=== PATIENT | male | born 1940 | race Caucasian/White ===

== ENCOUNTER 2020-07-10 15:59 | Inpatient (IN) ==
[2020-07-10] MEDS ORDERED: 0.9 % SODIUM CHLORIDE 500 ML IV ONE (17:08)
--- NOTE | 2020-07-10 17:17 | XRay Report ---
INDICATION: pre op TECHNIQUE: AP supine chest x-ray chest x-ray COMPARISON: Previous examination dated 02/25/2020 FINDINGS:Left transvenous pacemaker lead is unchanged Lungs:Lungs are negative. No focal pulmonary parenchymal infiltrate or mass Heart, vascular:There is significant cardiomegaly. This appears slightly increased since 02/25/2020. Pulmonary vascularity is normal. No pulmonary edema or pulmonary congestion. Pericardial effusion is not excluded based upon plain radiograph Mediastinum, steffany:No mediastinal widening. No hilar mass Pleura:No pleural fluid. No pleural-based mass or calcification Skeletal:Negative. IMPRESSION: 1. Marked cardiomegaly. This is slightly increased since 02/25/2020 2. Pericardial effusion is not excluded. 3. No focal pulmonary parenchymal infiltrate. No evidence for congestive heart failure Interpreted and Authenticated by: Ze Parsons 07/10/20
--- NOTE | 2020-07-10 17:25 | XRay Report ---
INDICATION: Fell. c/o L hip pain. Unable to ambulate. TECHNIQUE: AP pelvis. AP and lateral left hip COMPARISON: None. FINDINGS: Basicervical left hip fracture with varus angulation deformity. No pelvic fracture. No lytic lesion. Right hip is negative. There is extensive vascular calcification consistent with atherosclerotic disease IMPRESSION: Basicervical left hip fracture with varus angulation deformity Interpreted and Authenticated by: Ze Parsons 07/10/20
[2020-07-10] MEDS ORDERED: morphine 2 MG/ML VIAL IV ONE (17:45)
--- NOTE | 2020-07-10 18:08 | Emergency Department Note ---
Lower Extremity Injury HPI General Chief Complaint: Extremity Injury, Lower Stated Complaint: Hip pain Time Seen by Provider: 07/10/20 16:44 Source: patient Mode of arrival: ambulatory Limitations: no limitations History of Present Illness HPI Narrative: Narrative: 80-year-old male patient presents emergency department chief complaint of worsening left hip pain and inability to walk. Patient mentions he was playing with his dog outside when he was inadvertently pushed backwards landing "hard on my knee". This caused sudden sharp pain into his left hip. He was unable to put weight on the affected leg since that time. Upon arrival, patient admits to pain localized to the hip joint. He mentions the pain is dull when laying still. However with any movement the pain shoots to 10++/10. He denies any radiculopathy in the affected left lower extremity. He denies any preceding shortness of breath, chest pain, or dizziness before falling. He denies hitting his head or loss of consciousness. ROS: Denies systemic illness, fever, sweats, chills. Denies headaches, tinnitus, or vision changes. Denies runny nose, sinus congestion, or cough. Denies shortness of breath. Denies retrosternal chest pain or palpitations. Denies abdominal pain, nausea, vomiting, or diarrhea. Denies dysuria, hematuria, urinary frequency, or urinary urgency. Denies generalized or focal weakness. Related Data Home Medications Medication Instructions Recorded Confirmed apixaban [Eliquis] mg PO 07/10/20 07/10/20 latanoprost 1 drp OPHTHALMIC (EYE) QHS 07/10/20 07/10/20 levothyroxine 50 mcg PO QDAY 07/10/20 07/10/20 potassium chloride meq PO 07/10/20 07/10/20 tamsulosin 1 mg PO QDAY 07/10/20 07/10/20 torsemide 40 mg PO BID 07/10/20 07/10/20 Allergies Allergy/AdvReac Type Severity Reaction Status Date / Time No Known Drug Allergies Allergy Verified 01/24/18 12:52 Review of Systems ROS ROS Narrative: Narrative: All systems ED: reviewed and negative except as stated. [facility] Narrative Patient History Narrative: Narrative: Medical/Surgical/Family History All Active Problems (Updated 07/10/20 @ 18:33 by Mat Corrigan PA-C) Closed fracture of left hip (Acute) Atrial fibrillation (Acute) Medical History Atrial fibrillation (Acute) Surgical History History of permanent cardiac pacemaker placement (Acute) Social History Smoking Status: Former smoker Exam Narrative Narrative: Narrative: General Limitations: no limitations General appearance: Present other (Well-developed, well-nourished, 80-year-old male patient laying supine on the emergency room gurney in mild discomfort. No acute respiratory distress. He is afebrile with normal vital signs.) Head Head: Present atraumatic and normocephalic Eye Eye: Present normal appearance, PERRL and EOMI; Absent scleral icterus and conjunctival injection ENT ENT: Present normal oropharynx and mucous membranes moist Neck Neck: Present trachea midline; Absent lymphadenopathy and thyromegaly Chest Chest: Present normal inspection (Pacemaker noted to the left upper chest.) and symmetric chest wall rise Respiratory Respiratory: Present normal lung sounds bilaterally; Absent respiratory distress, wheezes, stridor, accessory muscle use and prolonged expiratory phase Cardiovascular Cardiovascular: Present regular rate and normal rhythm; Absent systolic murmur and diastolic murmur Adbominal Abdominal: Present soft; Absent distention, tenderness, guarding, rebound, rigidity, organomegaly and mass Expanded Lower Extremity Hip/Pelvis: Present normal inspection, tenderness, deformity, erythema, internal rotation, shortening and pelvis stable; Absent full ROM, swelling, ecchymosis, crepitus, dislocation and external rotation Upper leg: Present normal inspection and full ROM; Absent tenderness Knee: Present normal inspection and full ROM; Absent tenderness Lower leg: Present normal inspection and full ROM; Absent tenderness Ankle: Present normal inspection and full ROM; Absent tenderness Foot/toe: Present normal inspection and full ROM; Absent tenderness Neurovascular/Tendon: Present normal capillary refill (2 seconds.) and motor deficit; Absent pulse deficit and sensory deficit Gait: unable to bear weight Neurological Neurological: Present alert and oriented X3 Psychiatric Psychiatric: Present normal affect and normal mood Skin Skin: Present warm (WNL), dry and normal color Course Course Course Narrative: Upon arrival patient was sent to radiology for a left hip x- ray series. Unfortunately, patient fractured his left femoral neck. Once this was noted I reached out to our on-call orthopedic surgeon (Dr. Matthews) and discussed the case briefly with him. At this time Dr. Matthews said he would come down and evaluate the patient. Prior to this preoperative clearance labs, EKG, chest x-ray were ordered. Reevaluation(s) Reevaluation #1: Dr. Matthews arrived at the patient's bedside did a formal evaluation. At this time he wants the patient admitted under the hospitalist service in order to have the left hip surgically corrected. A review the patient's diagnostics show the following: CBC WBC 16.9, RBC 3.13, hemoglobin 10.1, hematocrit 30.8, platelets 335. CMP CO2 31, creatinine 1.3, all others normal limits. Covid test still pending. Left hip x-rays read by the radiologist as basicervical left hip fracture with varus angulation deformity. Portable chest x-ray showing marked cardiomegaly but no evidence of CHF. No pericardial effusion noted. After reviewing the data I discussed these findings with our hospitalist (Dr. Retana) andre case with him. At this time Dr. Retana consented to have the patient admitted to the our facility. He did request ho lding orders be placed by me and that he would come in and evaluate the patient later this evening. Knowing this inpatient admissions orders were completed as requested. All further treatment decisions, modalities, and ultimate patient disposition be carried out by Dr. Retana in conjunction with the orthopedic surgeon (Dr. Matthews). Vital Signs Vital signs: Vital Signs Temperature 97.2 F 07/10/20 16:00 Pulse Rate 60 07/10/20 16:00 Respiratory Rate 14 07/10/20 16:00 Blood Pressure 154/78 07/10/20 16:00 Pulse Oximetry (%) 97 07/10/20 16:00 Temperature 97.2 F 07/10/20 21:08 Pulse Rate 69 07/10/20 21:08 Respiratory Rate 16 07/10/20 21:08 Blood Pressure 117/81 07/10/20 21:08 Pulse Oximetry (%) 96 07/10/20 21:08 [facility] MDM Narrative Medical decision making narrative: Narrative: Lab Data Lab results reviewed: Yes I reviewed the patient's lab results. Result diagrams: 07/10/20 17:25 07/10/20 17:25 Labs: Lab Results 07/10/20 07/10/20 07/10/20 Range/Units 17:00 17:25 17:25 WBC 16.9 H (4.5-11.0) K/mcL RBC 3.13 L (4.50-5.90) M/mcL Hgb 10.1 L (13.5-16.5) g/dL Hct 30.8 L (41.0-55.0) % MCV 98.4 (80.0-100.0) fL MCH 32.3 (26.0-34.0) pg MCHC 32.8 (31.0-36.0) g/dL RDW 14.2 (11.5-14.5) % Plt Count 335 (140-440) K/mcL MPV 10.3 (7.4-10.4) fL Neut % (Auto) 84.0 H (38.0-78.0) % Lymph % (Auto) 8.8 L (15.0-49.0) % [place] % (Auto) 5.9 (1.0-12.0) % Eos % (Auto) 0.9 (0.0-7.0) % Baso % (Auto) 0.4 (0.0-2.0) % Lymph # (Auto) 1.48 L (1.50-4.80) K/mcL [place] # (Auto) 0.99 H (0.10-0.90) K/mcL Eos # (Auto) 0.16 (0.00-0.70) K/mcL Baso # (Auto) 0.07 (0.00-0.20) K/mcL Absolute Neutrophils 14.19 H (1.80-8.00) K/mcL Sodium 138 (133-145) mmol/L Potassium 3.8 (3.3-5.1) mmol/L Chloride 98 (96-108) mmol/L Carbon Dioxide 31 H (22-30) mmol/L Anion Gap 9.0 (8.0-16.0) BUN 20 (8-23) mg/dL Creatinine 1.3 H (0.7-1.2) mg/dL GFR Calculation 52 Glucose 103 (70-105) mg/dL Calcium 9.0 (8.6-10.4) mg/dL Total Bilirubin 0.5 (0.1-1.0) mg/dL AST 21 (<40) U/L ALT 18 (<40) U/L Alkaline Phosphatase 63 (39-117) U/L Total Protein 6.8 (5.9-8.4) gm/dL Albumin 3.2 (3.2-5.2) gm/dL Globulin 3.6 (2.2-3.7) gm/dL Albumin/Globulin Ratio 0.9 L (1.0-2.3) Urine Color Urine Appearance (Clear) Urine pH (5.0-9.0) Ur Specific [place] (1.000-1.035) Urine Protein (Negative) mg/dL Urine Glucose (UA) (Negative) mg/dL Urine Ketones (Negative) mg/dL Urine Occult Blood (Negative) mg/dL Urine Nitrate (Negative) Urine Bilirubin (Negative) mg/dL Urine Urobilinogen mg/dL Ur Leukocyte Esterase (Negative) /ug Urine RBC (0-1) /hpf Urine WBC (0-4) /hpf Ur Squamous Epith Cells (0-4) /hpf Urine Bacteria (0) /hpf Hyaline Casts (0-2) /lph Ur Culture Indicated? SARS-CoV-2 (PCR) Negative (Negative) 07/10/20 07/10/20 Range/Units 17:34 20:44 WBC (4.5-11.0) K/mcL RBC (4.50-5.90) M/mcL Hgb (13.5-16.5) g/dL Hct (41.0-55.0) % MCV (80.0-100.0) fL MCH (26.0-34.0) pg MCHC (31.0-36.0) g/dL RDW (11.5-14.5) % Plt Count (140-440) K/mcL MPV (7.4-10.4) fL Neut % (Auto) (38.0-78.0) % Lymph % (Auto) (15.0-49.0) % [place] % (Auto) (1.0-12.0) % Eos % (Auto) (0.0-7.0) % Baso % (Auto) (0.0-2.0) % Lymph # (Auto) (1.50-4.80) K/mcL [place] # (Auto) (0.10-0.90) K/mcL Eos # (Auto) (0.00-0.70) K/mcL Baso # (Auto) (0.00-0.20) K/mcL Absolute Neutrophils (1.80-8.00) K/mcL Sodium (133-145) mmol/L Potassium (3.3-5.1) mmol/L Chloride (96-108) mmol/L Carbon Dioxide (22-30) mmol/L Anion Gap (8.0-16.0) BUN (8-23) mg/dL Creatinine (0.7-1.2) mg/dL GFR Calculation Glucose (70-105) mg/dL Calcium (8.6-10.4) mg/dL Total Bilirubin (0.1-1.0) mg/dL AST (<40) U/L ALT (<40) U/L Alkaline Phosphatase (39-117) U/L Total Protein (5.9-8.4) gm/dL Albumin (3.2-5.2) gm/dL Globulin (2.2-3.7) gm/dL Albumin/Globulin Ratio (1.0-2.3) Urine Color Straw Urine Appearance Clear (Clear) Urine pH 6.0 (5.0-9.0) Ur Specific [place] 1.009 (1.000-1.035) Urine Protein Negative (Negative) mg/dL Urine Glucose (UA) Negative (Negative) mg/dL Urine Ketones Negative (Negative) mg/dL Urine Occult Blood Negative (Negative) mg/dL Urine Nitrate Negative (Negative) Urine Bilirubin Negative (Negative) mg/dL Urine Urobilinogen Negative mg/dL Ur Leukocyte Esterase Negative (Negative) /ug Urine RBC 1 (0-1) /hpf Urine WBC < 1 (0-4) /hpf Ur Squamous Epith Cells 0 (0-4) /hpf Urine Bacteria None (0) /hpf Hyaline Casts 3 H (0-2) /lph Ur Culture Indicated? No SARS-CoV-2 (PCR) TNP (Negative) Radiology Data Radiology results reviewed: Yes I reviewed the patient's radiology results. Radiology results narrative: Ordering Physician: Mat Corrigan PA-C Date of Service: 07/10/20 Procedure(s): XR hip LT comp 2VW Accession Number(s): [id number] INDICATION: Fell. c/o L hip pain. Unable to ambulate. TECHNIQUE: AP pelvis. AP and lateral left hip COMPARISON: None. FINDINGS: Basicervical left hip fracture with varus angulation deformity. No pelvic fracture. No lytic lesion. Right hip is negative. There is extensive vascular calcification consistent with atherosclerotic disease IMPRESSION: Basicervical left hip fracture with varus angulation deformity Ordering Physician: Ki Padilla M.D. Date of Service: 07/10/20 Procedure(s): XR chest 1V portable Accession Number(s): [id number] INDICATION: pre op TECHNIQUE: AP supine chest x-ray chest x-ray COMPARISON: Previous examination dated 02/25/2020 FINDINGS:Left transvenous pacemaker lead is unchanged Lungs:Lungs are negative. No focal pulmonary parenchymal infiltrate or mass Heart, vascular:There is significant cardiomegaly. This appears slightly increased since 02/25/2020. Pulmonary vascularity is normal. No pulmonary edema or pulmonary congestion. Pericardial effusion is not excluded based upon plain radiograph Mediastinum, steffany:No mediastinal widening. No hilar mass Pleura:No pleural fluid. No pleural-based mass or calcification Skeletal:Negative. IMPRESSION: 1. Marked cardiomegaly. This is slightly increased since 02/25/2020 2. Pericardial effusion is not excluded. 3. No focal pulmonary parenchymal infiltrate. No evidence for congestive heart failure Interpreted and Authenticated by: Ze Parsons 07/10/20 Discharge Plan Patient/Caregiver Discharge Instructions Pt seen by WAX BLEACHER/PA only: Yes Clinical Impression: Closed fracture of left hip Qualifiers: Encounter type: initial encounter Qualified Code(s): S72.002A - Fracture of unspecified part of neck of left femur, initial encounter for closed fracture Atrial fibrillation Qualifiers: Atrial fibrillation type: unspecified Qualified Code(s): I48.91 - Unspecified atrial fibrillation Patient Disposition: Xfer As Inpt ([facility]) Condition: Fair Discharge Date/Time: 07/10/20 21:03
[2020-07-10 18:10] LABS: Basophils # (Auto) 0.07 K/mcL (0.00-0.20); Basophils % (Auto) 0.4 % (0.0-2.0); Eosinophils # (Auto) 0.16 K/mcL (0.00-0.70); Eosinophils % (Auto) 0.9 % (0.0-7.0); Hematocrit 30.8 % (41.0-55.0); Hemoglobin 10.1 g/dL (13.5-16.5); Lymphocytes # (Auto) 1.48 K/mcL (1.50-4.80); Lymphocytes % (Auto) 8.8 % (15.0-49.0); Mean Cell Volume 98.4 fL (80.0-100.0); Mean Corpuscular HGB Conc 32.8 g/dL (31.0-36.0); Mean Platelet Volume 10.3 fL (7.4-10.4); Monocytes # (Auto) 0.99 K/mcL (0.10-0.90); Monocytes % (Auto) 5.9 % (1.0-12.0); Platelet Count 335 K/mcL (140-440); RBC 3.13 M/mcL (4.50-5.90); Red Cell Distribution Width 14.2 % (11.5-14.5); WBC 16.9 K/mcL (4.5-11.0)
[2020-07-10 18:27] LABS: ALT/SGPT 18 U/L (<40); AST/SGOT 21 U/L (<40); Albumin 3.2 gm/dL (3.2-5.2); Albumin/Globulin Ratio 0.9 (1.0-2.3); Alkaline Phosphatase 63 U/L (39-117); Bilirubin,Total 0.5 mg/dL (0.1-1.0); Blood Urea Nitrogen 20 mg/dL (8-23); Carbon Dioxide 31 mmol/L (22-30); Chloride 98 mmol/L (96-108); Globulin 3.6 gm/dL (2.2-3.7); Glomerular Filtration Rate 52; Glucose 103 mg/dL (70-105)
[2020-07-10] MEDS ORDERED: ONDANSETRON 4 MG/2 ML VIAL IV PRN ×2 (18:33→19:08)
[2020-07-10] MEDS ORDERED: 0.9 % SODIUM CHLORIDE 1,000 ML IV SCH (18:45)
[2020-07-10] MEDS ORDERED: POLYETHYLENE GLYCOL 3350 17 GM PACKET PO PRN (19:08)
[2020-07-10] MEDS ORDERED: HYDROmorphone 0.5 MG/0.5 ML SYRINGE IV PRN (19:08)
[2020-07-10] MEDS ORDERED: MAGNESIUM SULFATE 2 GM/50 ML BAG IV PRN (19:08)
[2020-07-10] MEDS ORDERED: MELATONIN 3 MG TABLET PO PRN (19:08)
[2020-07-10] MEDS ORDERED: ONDANSETRON 4 MG ODT TABLET SL PRN (19:08)
[2020-07-10] MEDS ORDERED: METOPROLOL TARTRATE 5 MG/5 ML VIAL IV PRN (19:08)
[2020-07-10] MEDS ORDERED: ACETAMINOPHEN 650 MG/65 ML BOTTLE IV PRN (19:08)
[2020-07-10] MEDS ORDERED: ACETAMINOPHEN 325 MG TABLET PO PRN (19:08)
[2020-07-10] MEDS ORDERED: POTASSIUM CHLORIDE 20 MEQ PACKET PO PRN (19:08)
[2020-07-10] MEDS ORDERED: BISACODYL 10 MG SUPP.RECT PR PRN (19:08)
[2020-07-10] MEDS ORDERED: hydrALAZINE 20 MG/ML VIAL IV PRN (19:08)
--- NOTE | 2020-07-10 19:11 | Internal Med History&Physical ---
HPI History of Present Illness Patient information: Note initiated : 07/10/20 at 7:11 pm Service Date, if different from initiated Date: [] Patient: Messi Hermosillo a 80 y/o M admitted on for Hip pain. Chief Complaint: Fall/left hip pain History of present illness: Mr. Hermosillo is a 80 year old M with a history of atrial fibrillation/pacemaker follows up with Dr. Tomas cardiology, anticoagulation for Superflex, hypothyroidism and glaucoma who presents to the ER following a fall while he was playing with his dog. Patient apparently lost balance and landed on the floor resulting in pain and inability to walk. Initial work-up was consistent with left hip fracture. Hospitalist service was consulted after orthopedic recommended admission for operative intervention. Patient's last dose of Eliquis was 6 AM 07/10, He denies respiratory events, loss of consciousness, fever, chills, lightheadedness or dizziness. He has been fairly healthy otherwise Review of systems 10 point review system was performed and is negative except for ones cussed above PFSH PFSH All Active Problems (Updated 07/10/20 @ 18:33 by Mat Corrigan PA-C) Closed fracture of left hip (Acute) Atrial fibrillation (Acute) Medical History Atrial fibrillation (Acute) Surgical History History of permanent cardiac pacemaker placement (Acute) Social History smoking status: Former smoker MEDS/ALLERGIES Home Medications and Allergies Home Medications Medication Instructions Recorded Confirmed Type apixaban [Eliquis] mg PO 07/10/20 07/10/20 History latanoprost 1 drp OPHTHALMIC (EYE) QHS 07/10/20 07/10/20 History levothyroxine 50 mcg PO QDAY 07/10/20 07/10/20 History potassium chloride meq PO 07/10/20 07/10/20 History tamsulosin 1 mg PO QDAY 07/10/20 07/10/20 History torsemide 40 mg PO BID 07/10/20 07/10/20 History Allergies Allergy/AdvReac Type Severity Reaction Status Date / Time No Known Drug Allergies Allergy Verified 01/24/18 12:52 EXAM Constitutional Vitals: Temp Pulse Resp BP Pulse Ox 97.2 F 69 16 156/77 96 07/10/20 16:00 07/10/20 17:40 07/10/20 17:40 07/10/20 17:40 07/10/20 17:40 Alert oriented Head normocephalic Oral cavity moist No ear nose discharge Eye movement symmetrical Neck supple no lymphadenopathy S1-S2 occasionally irregular Nonlabored breathing Nondistended nontender abdomen Left lower extremity shortened and externally rotated, no cyanosis clubbing or joint swelling Skin no suspicious lesion Psych no hallucination Neuro normal higher function DATA Data Completed and Pending Labs: Labs from last 24 hours 07/10/20 07/10/20 07/10/20 17:34 17:25 17:25 WBC 16.9 H RBC 3.13 L Hgb 10.1 L Hct 30.8 L MCV 98.4 MCH 32.3 MCHC 32.8 RDW 14.2 Plt Count 335 MPV 10.3 Neut % (Auto) 84.0 H Lymph % (Auto) 8.8 L [place] % (Auto) 5.9 Eos % (Auto) 0.9 Baso % (Auto) 0.4 Lymph # (Auto) 1.48 L [place] # (Auto) 0.99 H Eos # (Auto) 0.16 Baso # (Auto) 0.07 Absolute Neutrophils 14.19 H Sodium 138 Potassium 3.8 Chloride 98 Carbon Dioxide 31 H Anion Gap 9.0 BUN 20 Creatinine 1.3 H GFR Calculation 52 Glucose 103 Calcium 9.0 Total Bilirubin 0.5 AST 21 ALT 18 Alkaline Phosphatase 63 Total Protein 6.8 Albumin 3.2 Globulin 3.6 Albumin/Globulin Ratio 0.9 L SARS-CoV-2 (PCR) TNP 07/10/20 17:00 WBC RBC Hgb Hct MCV MCH MCHC RDW Plt Count MPV Neut % (Auto) Lymph % (Auto) [place] % (Auto) Eos % (Auto) Baso % (Auto) Lymph # (Auto) [place] # (Auto) Eos # (Auto) Baso # (Auto) Absolute Neutrophils Sodium Potassium Chloride Carbon Dioxide Anion Gap BUN Creatinine GFR Calculation Glucose Calcium Total Bilirubin AST ALT Alkaline Phosphatase Total Protein Albumin Globulin Albumin/Globulin Ratio SARS-CoV-2 (PCR) Pending A/P Narrative A/P Narrative: * Left hip fracture-operative intervention per orthopedics. Keep n.p.o. until surgery. Pain management * Preoperative risk evaluation-based on [employer] [place] [employer] to stratification patient would fall under intermittent a high risk category based on surgery specific risk and cardiac history. However there are no modifiable risk factor except for Eliquis which will be held to minimize risk of bleeding. Surgery and anesthesia specific risk will be addressed by individual care provider. * Atrial fibrillation on anticoagulation currently being held until surgery * Glaucoma continue latanoprost * Hypothyroidism contraction * BPH continue on Zosyn * Full code Plan * Inpatient admission * Orthopedic consult * Hold Eliquis * Pre-existing medical condition management home meds * N.p.o. after midnight * Pain management * PT OT * discharge planning Time Spent With Patient Time: Total time spent is greater than 50% in coordination of care (as documented) at patient's floor/unit and/or counseling patient:
[2020-07-10] MEDS: morphine 4 MG/ML VIAL IV PRN (21:53)
[2020-07-10 21:59] LABS: Appearance,Urine CLEAR (Clear); Bilirubin,Urine Negative (Negative); Color,Urine STRAW; Culture Indicated,Urine No; Glucose,Urine (UA) Negative (Negative); Ketones,Urine Negative (Negative); Leukocyte Esterase,Urine Negative /ug (Negative); Nitrate,Urine Negative (Negative); Protein,Urine Negative (Negative); Specific Gravity,Urine 1.009 (1.000-1.035); Urine Blood Negative (Negative); Urine Hyaline Cast 3 /lph (0-2); Urine RBC 1 /hpf (0-1); Urine Squamous Epithelial Cell 0 /hpf (0-4); Urine WBC < 1 /hpf (0-4); Urobilinogen,Urine Negative
[2020-07-10] MEDS ORDERED: 0.9 % SODIUM CHLORIDE 10 ML SYRINGE IV SCH (22:00)
[2020-07-10] MEDS: DOCUSATE SODIUM 100 MG CAPSULE PO SCH (22:47)
[2020-07-10] MEDS: SENNOSIDES/DOCUSATE SODIUM 1 TAB TABLET PO SCH (22:47)
[2020-07-10] MEDS: 0.9 % SODIUM CHLORIDE 1,000 ML IV SCH (22:52)
[2020-07-10] MEDS: 0.9 % SODIUM CHLORIDE 10 ML SYRINGE IV SCH (22:52)
[2020-07-11] MEDS: 0.9 % SODIUM CHLORIDE 10 ML SYRINGE IV SCH ×4 (06:28→22:13)
[2020-07-11] MEDS: morphine 4 MG/ML VIAL IV PRN (07:48)
[2020-07-11] MEDS: DOCUSATE SODIUM 100 MG CAPSULE PO SCH ×2 (07:50→22:11)
[2020-07-11] MEDS: MULTIVIT,THER IRON,CA,FA & MIN 1 TABLET PO SCH (07:50)
[2020-07-11 08:16] LABS: ALT/SGPT 15 U/L (<40); AST/SGOT 15 U/L (<40); Albumin 2.9 gm/dL (3.2-5.2); Albumin/Globulin Ratio 0.9 (1.0-2.3); Alkaline Phosphatase 56 U/L (39-117); Bilirubin,Direct 0.2 mg/dL (<0.3); Bilirubin,Total 0.9 mg/dL (0.1-1.0); Blood Urea Nitrogen 20 mg/dL (8-23); Calcium 8.8 mg/dL (8.6-10.4); Carbon Dioxide 32 mmol/L (22-30); Chloride 101 mmol/L (96-108); Globulin 3.4 gm/dL (2.2-3.7); Glomerular Filtration Rate 52; Glucose 96 mg/dL (70-105); Lactate Dehydrogenase 184 U/L (135-225); Phosphorous 3.5 mg/dL (2.5-4.5); Triglycerides 35 mg/dL (<150); Uric Acid 8.2 mg/dL (2.5-8.0)
[2020-07-11 08:25] LABS: Hematocrit 29.1 % (41.0-55.0); Hemoglobin 9.3 g/dL (13.5-16.5); Lymphocytes % 18 % (15-49); Mean Cell Volume 99.3 fL (80.0-100.0); Mean Platelet Volume 10.4 fL (7.4-10.4); Monocytes % (Manual) 8 % (1-12); Platelet Count 329 K/mcL (140-440); Platelet Estimate NORMAL (Normal); RBC 2.93 M/mcL (4.50-5.90); RBC Morphology NORMAL (Normal); Reactive Lymphocytes 2 % (0-2); Red Cell Distribution Width 14.2 % (11.5-14.5); Segmented Neutrophils % 72 % (38-78); WBC 8.2 K/mcL (4.5-11.0)
--- NOTE | 2020-07-11 10:55 | Internal Med Progress Note ---
SUBJECTIVE Subjective Patient information: Note initiated : 07/11/20 at 10:51 am Service Date, if different from initiated Date: [] Patient: Messi Hermosillo a 80 y/o M admitted on 07/10/20 for Hip pain. Chief Complaint: istory of present illness: Mr. Hermosillo is a 80 year old M with a history of a trial fibrillation/pacemaker follows up with Dr. Tomas cardiology, anticoagulation for Superflex, hypothyroidism and glaucoma who presents to the ER following a fall while he was playing with his dog. Patient apparently lost balance and landed on the floor resulting in pain and inability to walk. Initial work-up was consistent with left hip fracture. Hospitalist service was consulted after orthopedic recommended admission for operative intervention. Patient's last dose of Eliquis was 6 AM 07/10, He denies respiratory events, loss of consciousness, fever, chills, lightheadedness or dizziness. 07/11-patient currently n.p.o. No overnight events. Pain well controlled on opioids. Had a restful night. Due for surgery at 2 PM. No concerns per nursing staff. Stable vitals and hemodynamics. White count down from 16.9->8. Will review postop. Constitutional Vitals: Vital Signs Temp Pulse Resp BP Pulse Ox 99.0 F 59 L 16 131/66 96 07/11/20 08:00 07/11/20 08:00 07/11/20 08:00 07/11/20 08:00 07/11/20 08:00 Period Temp Pulse Resp BP Sys/Thomas Pulse Ox Last 24 Hr 97.2 F-99.0 F 59-69 14-16 111-156/66-81 94-97 Intake and Output 07/10/20 07/11/20 07/11/20 21:59 05:59 13:59 Intake Total 500 Balance 500 Weight 72.575 kg 77.836 kg Alert oriented Minimal tenderness at left hip fracture site No lymphedema Nonlabored breathing Intake & Output: Intake & Output 07/10/20 07/11/20 07/11/20 21:59 05:59 13:59 Intake Total 500 Balance 500 Weight 72.575 kg 77.836 kg Intake: IV 500 Sodium Chloride 0.9% 500 ml @ 500 Wide Open IV [facility] Rx#: [id number] OBJ DATA Labs CBC & Chem 7: 07/11/20 05:40 07/11/20 05:40 Labs: Abnormal Lab Results 07/11/20 07/11/20 07/10/20 05:40 05:40 20:44 WBC RBC 2.93 L Hgb 9.3 L Hct 29.1 L Neut % (Auto) Lymph % (Auto) Lymph # (Auto) [place] # (Auto) Absolute Neutrophils Carbon Dioxide 32 H Anion Gap 7.0 L Creatinine 1.3 H Uric Acid 8.2 H Albumin 2.9 L Albumin/Globulin Ratio 0.9 L Hyaline Casts 3 H 07/10/20 07/10/20 17:25 17:25 WBC 16.9 H RBC 3.13 L Hgb 10.1 L Hct 30.8 L Neut % (Auto) 84.0 H Lymph % (Auto) 8.8 L Lymph # (Auto) 1.48 L [place] # (Auto) 0.99 H Absolute Neutrophils 14.19 H Carbon Dioxide 31 H Anion Gap Creatinine 1.3 H Uric Acid Albumin Albumin/Globulin Ratio 0.9 L Hyaline Casts Meds: Medications Acetaminophen (Tylenol) 650 mg PO Q4-6HP PRN; Protocol PRN Reason: Per Pain Protocol/Fever > 101 Albuterol/Ipratropium (Duoneb) 3 ml NEB ONCE PRN PRN Reason: Shortness Of Breath Stop: 07/11/20 20:00 Bisacodyl (Dulcolax) 10 mg [place] Q2-3DAYS PRN PRN Reason: Constipation Docusate Sodium (Colace) 100 mg PO BID [facility] Last Admin: 07/11/20 07:50 Dose: Not Given Documented by: Hydralazine HCl (Apresoline) 10 mg IV Q4-6HP PRN PRN Reason: Hypertension Hydromorphone HCl (Dilaudid) 0.25 - 0.5 mg IV Q4HP PRN; Protocol PRN Reason: Per Pain Protocol Acetaminophen (Ofirmev) 650 mg in 65 mls @ 130 mls/hr IV Q6HP PRN; Protocol PRN Reason: Per Pain Protocol/Fever > 101 Magnesium Sulfate (Magnesium Sulfate) 2 gm in 50 mls @ 50 mls/hr IV UD PRN PRN Reason: MG = or < 1.7 Sodium Chloride (Sodium Chloride 0.9%) 1,000 mls @ 50 mls/hr IV .Q20H [facility] Stop: 11/02/20 07:14 Last Admin: 07/10/20 22:52 Dose: 50 mls/hr Documented by: Iron Carb/Multivit/[place]/Folic Acid (Multivitamin W/Minerals) 1 tab PO DAILY [facility] Last Admin: 07/11/20 07:50 Dose: Not Given Documented by: Melatonin (Melatonin 3mg Tablet) 3 mg PO HSP PRN PRN Reason: Insomnia Metoprolol Tartrate (Lopressor) 5 mg IV Q5M PRN PRN Reason: Heart Rate > 140 bpm Morphine Sulfate (Morphine) 4 mg IV Q4HP PRN; Protocol PRN Reason: Per Pain Protocol Last Admin: 07/11/20 07:48 Dose: 4 mg Documented by: Ondansetron HCl (Zofran Odt) 4 mg SL Q4-6HP PRN; Protocol PRN Reason: Nausea And Vomiting Ondansetron HCl (Zofran) 4 mg IV Q4-6HP PRN; Protocol PRN Reason: Nausea And Vomiting Polyethylene Glycol (Miralax) 17 gm PO DAILYP PRN PRN Reason: Constipation Potassium Chloride (Klor-Con) 40 meq PO DAILYP PRN PRN Reason: K+ < 3.5 Scopolamine (Transderm-Scop) 1 patch TOPICAL PREOP PRN PRN Reason: Nausea And Vomiting Stop: 07/11/20 20:00 Senna/Docusate Sodium (Senna Plus Tablet) 1 tab PO HS [facility] Last Admin: 07/10/20 22:47 Dose: Not Given Documented by: Sodium Chloride (Saline Flush) 10 ml IV Q8 [facility] Last Admin: 07/11/20 06:28 Dose: Not Given Documented by: A/P Narrative A/P Narrative: * Left hip fracture- surgery at 2 PM. Currently n.p.o. , pain well controlled on opioids * Preoperative risk evaluation-based on [employer] [place] [employer] to stratification patient would fall under intermediate to high risk category based on surgery specific risk and cardiac history. However there are no modifiable risk factor except for Eliquis which is held to minimize risk of bleeding. Surgery and anesthesia specific risk will be addressed by individual care provider. * Atrial fibrillation on anticoagulation currently being held until surgery. Rate controlled * Glaucoma continue latanoprost * Hypothyroidism continue thyroxine * BPH continue tamsulosin * Full code Plan * review postop * Restart Eliquis 24-hour post surgery * Pre-existing medical condition management home meds * Continue pain management * Postop PT OT * discharge planning per case management Time Spent With Patient Time: Total time spent is greater than 50% in coordination of care (as documented) at patient's floor/unit and/or counseling patient: QUALITY VTE Deep Vein Thrombosis/Pulmonary Embolism Present on Admission: No
--- NOTE | 2020-07-11 13:27 | Brief Operative Note ---
Brief Operative Note Date of procedure: 07/11/20 Pre-op diagnosis: Left femoral neck fracture Post-op diagnosis: same Procedure: hemiarthroplasty Grafts/Implants: Yes Anesthesia: GETA Complications: none Surgeon: Cooper Matthews Estimated blood loss (cc): 250 Condition: stable Disposition: PACU
[2020-07-11] MEDS ORDERED: TRANEXAMIC ACID 1,000 MG/10 ML VIAL IV ONE ×2 (13:59→14:36)
[2020-07-11] MEDS ORDERED: IPRATROPIUM/ALBUTEROL 3 ML AMPUL.NEB NEB PRN ×2 (14:00→15:11)
[2020-07-11] MEDS ORDERED: SCOPOLAMINE 1 PATCH PATCH TOPICAL PRN (14:00)
[2020-07-11] MEDS ORDERED: ceFAZolin 2 GM in DEXTROSE 5% IN WATER 50 ML IV SCH (14:00)
[2020-07-11] MEDS ORDERED: fentaNYL 100 MCG/2 ML VIAL IV ONE (14:36)
[2020-07-11] MEDS ORDERED: KETAMINE 100 MG/ML ML ONE (14:36)
[2020-07-11] MEDS ORDERED: GLYCOPYRROLATE 0.2 MG/ML VIAL IV ONE (14:36)
[2020-07-11] MEDS ORDERED: ONDANSETRON 4 MG/2 ML VIAL ONE (14:36)
[2020-07-11] MEDS ORDERED: LIDOCAINE HCL/PF 100 MG/5 ML SYRINGE IV ONE (14:36)
[2020-07-11] MEDS ORDERED: DEXAMETHASONE 10 MG/ML VIAL ONE (14:36)
[2020-07-11] MEDS ORDERED: PROPOFOL 200 MG/20 ML VIAL IV ONE (14:36)
[2020-07-11] MEDS ORDERED: METHOCARBAMOL 1,000 MG/10 ML VIAL IV PRN ×2 (15:16→15:47)
[2020-07-11] MEDS ORDERED: fentaNYL 100 MCG/2 ML VIAL IV PRN (15:16)
[2020-07-11] MEDS ORDERED: ACETAMINOPHEN 1,000 MG/100 ML BOTTLE IV ONE (15:16)
[2020-07-11] MEDS ORDERED: NALOXONE HCL 0.4 MG/ML VIAL IV PRN (15:16)
[2020-07-11] MEDS ORDERED: FLUMAZENIL 0.1 MG/ML ML IV PRN (15:16)
[2020-07-11] MEDS ORDERED: BENZOCAINE/MENTHOL 1 LOZENGE PO PRN ×2 (15:16→15:47)
[2020-07-11] MEDS ORDERED: LACTATED RINGERS 250 ML IV PRN (15:16)
[2020-07-11] MEDS ORDERED: LACTATED RINGERS 1,000 ML IV SCH (15:30)
[2020-07-11] MEDS ORDERED: POLYETHYLENE GLYCOL 3350 17 GM PACKET PO PRN (15:47)
[2020-07-11] MEDS ORDERED: FLEETS ADULT ENEMA PR PRN (15:47)
[2020-07-11] MEDS ORDERED: BISACODYL 10 MG SUPP.RECT PR PRN (15:47)
[2020-07-11] MEDS ORDERED: MAGNESIUM HYDROXIDE 30 ML ORAL.SUSP PO PRN (15:47)
[2020-07-11] MEDS ORDERED: TRANEXAMIC ACID 1,000 MG/10 ML VIAL IV SCH (15:52)
--- NOTE | 2020-07-11 16:38 | XRay Report ---
INDICATION: hip surgery TECHNIQUE: AP pelvis. AP and crosstable lateral left hip COMPARISON: Preoperative evaluation dated 07/10/2020 FINDINGS: Status post left hemiarthroplasty. Alignment is anatomic. There is postsurgical soft tissue gas and there are skin zora present IMPRESSION: Left hemiarthroplasty Interpreted and Authenticated by: Ze Parsons 07/11/20
[2020-07-11] MEDS: 0.9 % SODIUM CHLORIDE 1,000 ML IV SCH ×2 (17:37→17:43)
[2020-07-11] MEDS ORDERED: SENNOSIDES 1 TABLET PO SCH (21:00)
[2020-07-11] MEDS: HYDROCODONE/APAP 7.5/325MG TABLET PO PRN (22:10)
[2020-07-11] MEDS: SENNOSIDES/DOCUSATE SODIUM 1 TAB TABLET PO SCH (22:11)
[2020-07-11] MEDS: ceFAZolin 1 GM VIAL IV SCH (22:12)
[2020-07-12] MEDS: ceFAZolin 1 GM VIAL IV SCH (05:49)
[2020-07-12] MEDS: 0.9 % SODIUM CHLORIDE 10 ML SYRINGE IV SCH ×2 (05:49→14:50)
--- NOTE | 2020-07-12 08:09 | XRay Report ---
INDICATION: Interval Change TECHNIQUE: AP portable upright chest x-ray COMPARISON: Previous chest x-rays dated 07/10/2020, 02/25/2020 FINDINGS:No change in left transvenous pacemaker position Lungs:Lungs are negative. No focal pulmonary parenchymal infiltrate or mass Heart, vascular:There is cardiomegaly. This is unchanged. No pulmonary congestion or pulmonary edema Mediastinum, steffany:No mediastinal widening. No hilar mass Pleura:No pleural fluid. No pleural-based mass or calcification Skeletal:Negative. IMPRESSION: 1. Cardiomegaly. No pulmonary edema or pulmonary congestion 2. No acute abnormality. No interval change Interpreted and Authenticated by: Ze Parsons 07/12/20
[2020-07-12 09:15] LABS: INR 1.2 (0.9-1.1); Prothrombin Time 15.7 sec (11.9-14.5)
--- NOTE | 2020-07-12 09:29 | Internal Med Progress Note ---
SUBJECTIVE Subjective Patient information: Note initiated : 07/12/20 at 9:27 am Service Date, if different from initiated Date: [] Patient: Messi Hermosillo a 80 y/o M admitted on 07/10/20 for Hip pain. History of present illness: Mr. Hermosillo is a 80 year old M with a history of atrial fibrillation/pacemaker follows up with Dr. Tomas cardiology, anticoagulation for Superflex, hypothyroidism and glaucoma who presents to the ER following a fall while he was playing with his dog. Patient apparently lost balance and landed on the floor resulting in pain and inability to walk. Initial work-up was consistent with left hip fracture. Hospitalist service was consulted after orthopedic recommended admission for operative intervention. Patient's last dose of Eliquis was 6 AM 07/10, He denies respiratory events, loss of consciousness, fever, chills, lightheadedness or dizziness. 07/11-patient currently n.p.o. No overnight events. Pain well controlled on opioids. Had a restful night. Due for surgery at 2 PM. No concerns per nursing staff. Stable vitals and hemodynamics. White count down from 16.9->8. Will review postop. -07/12-postop day 1. Patient doing well. Minimal left hip pain at the surgery site. Tolerating diet. Ongoing physical therapy. Anticipate discharge in the next 24 to 48 hours pending clinical improvement and as per recommendation of orthopedics and therapy. Restart Eliquis. Constitutional Vitals: Vital Signs Temp Pulse Resp BP Pulse Ox 98.6 F 60 14 106/66 96 07/12/20 04:38 07/12/20 04:38 07/12/20 04:38 07/12/20 04:38 07/12/20 04:38 Period Temp Pulse Resp BP Sys/Thomas Pulse Ox Last 24 Hr 97.3 F-99.1 F 48-72 14-18 101-151/59-75 87-100 Intake and Output 07/11/20 07/12/20 07/12/20 22:59 05:59 13:59 Intake Total Output Total Balance Weight alert oriented No anxiety Nonlabored breathing Left hip surgery site stable with no swelling Intake & Output: Intake & Output 07/11/20 07/12/20 07/12/20 22:59 05:59 13:59 Intake Total Output Total Balance Weight Intake: IV Sodium Chloride 0.9% 1,000 ml @ 50 mls/hr IV .Q20H [facility] Rx#: [id number] Lactated Ringers 1,000 ml @ 20 mls/hr IV .Q24H [facility] Rx#: [id number] Oral IV - Manual Only Output: Urine Catheter Amount Void Amount Estimated Blood Loss Other: Urine Appearance Straight Urine Color Straight Urine Odor OBJ DATA Labs CBC & Chem 7: 07/11/20 05:40 07/11/20 05:40 Labs: Abnormal Lab Results 07/12/20 07/11/20 07/11/20 05:57 05:40 05:40 WBC RBC 2.93 L Hgb 9.3 L Hct 29.1 L Neut % (Auto) Lymph % (Auto) Lymph # (Auto) [place] # (Auto) Absolute Neutrophils PT 15.7 H INR 1.2 H Carbon Dioxide 32 H Anion Gap 7.0 L Creatinine 1.3 H Uric Acid 8.2 H Albumin 2.9 L Albumin/Globulin Ratio 0.9 L Hyaline Casts 07/10/20 07/10/20 07/10/20 20:44 17:25 17:25 WBC 16.9 H RBC 3.13 L Hgb 10.1 L Hct 30.8 L Neut % (Auto) 84.0 H Lymph % (Auto) 8.8 L Lymph # (Auto) 1.48 L [place] # (Auto) 0.99 H Absolute Neutrophils 14.19 H PT INR Carbon Dioxide 31 H Anion Gap Creatinine 1.3 H Uric Acid Albumin Albumin/Globulin Ratio 0.9 L Hyaline Casts 3 H Meds: Medications Acetaminophen (Tylenol) 650 mg PO Q4-6HP PRN; Protocol PRN Reason: Per Pain Protocol/Fever > 101 Hydrocodone Bitart/Acetaminophen ([place] 7.5/325mg) 0 tab PO Q4HP PRN; Protocol PRN Reason: Per Pain Protocol Last Admin: 07/11/20 22:10 Dose: 1 tab Documented by: Bisacodyl (Dulcolax) 10 mg [place] Q2-3DAYS PRN PRN Reason: Constipation Docusate Sodium (Colace) 100 mg PO BID [facility] Last Admin: 07/11/20 22:11 Dose: Not Given Documented by: Hydralazine HCl (Apresoline) 10 mg IV Q4-6HP PRN PRN Reason: Hypertension Hydromorphone HCl (Dilaudid) 0.25 - 0.5 mg IV Q4HP PRN; Protocol PRN Reason: Per Pain Protocol Last Admin: 07/11/20 17:37 Dose: 0.25 mg Documented by: Acetaminophen (Ofirmev) 650 mg in 65 mls @ 130 mls/hr IV Q6HP PRN; Protocol PRN Reason: Per Pain Protocol/Fever > 101 Magnesium Sulfate (Magnesium Sulfate) 2 gm in 50 mls @ 50 mls/hr IV UD PRN PRN Reason: MG = or < 1.7 Sodium Chloride (Sodium Chloride 0.9%) 1,000 mls @ 50 mls/hr IV .Q20H [facility] Stop: 07/13/20 07:14 Last Admin: 07/11/20 17:43 Dose: 50 mls/hr Documented by: Cefazolin Sodium 2 gm/ (Dextrose) 50 mls @ 100 mls/hr IV PREOP [facility]; Protocol Last Infusion: 07/11/20 14:45 Dose: Infused Documented by: Iron Carb/Multivit/Online Marketing [employer]st/Folic Acid (Multivitamin W/Minerals) 1 tab PO DAILY [facility] Last Admin: 07/11/20 07:50 Dose: Not Given Documented by: Magnesium Hydroxide (Milk Of Magnesia) 30 ml PO BIDP PRN PRN Reason: Constipation Melatonin (Melatonin 3mg Tablet) 3 mg PO HSP PRN PRN Reason: Insomnia Methocarbamol (Robaxin) 750 mg IV Q6HP PRN PRN Reason: Muscle Spasm Metoprolol Tartrate (Lopressor) 5 mg IV Q5M PRN PRN Reason: Heart Rate > 140 bpm Ondansetron HCl (Zofran Odt) 4 mg SL Q4-6HP PRN; Protocol PRN Reason: Nausea And Vomiting Ondansetron HCl (Zofran) 4 mg IV Q4-6HP PRN; Protocol PRN Reason: Nausea And Vomiting Polyethylene Glycol (Miralax) 17 gm PO DAILYP PRN PRN Reason: Constipation Potassium Chloride (Klor-Con) 40 meq PO DAILYP PRN PRN Reason: K+ < 3.5 Senna (Senokot) 1 tab PO HS [facility] Last Admin: 07/11/20 22:11 Dose: Not Given Documented by: Senna/Docusate Sodium (Senna Plus Tablet) 1 tab PO HS [facility] Last Admin: 07/11/20 22:11 Dose: Not Given Documented by: Sodium Biphosphate/Sodium Phosphate (Fleets Adult) 1 dose [place] Q3-4DAYS PRN PRN Reason: Constipation Sodium Chloride (Saline Flush) 10 ml IV Q8 [facility] Last Admin: 07/12/20 05:49 Dose: 10 ml Documented by: Throat Lozenges (Cepacol) 1 lozenge PO PRN PRN PRN Reason: Sore Throat A/P Narrative A/P Narrative: * Left hip fracture-postop day 1. Managed per orthopedics. * Postop pain management as per orthopedics well-controlled * Atrial fibrillation rate controlled. Start anticoagulation on Eliquis * Glaucoma continue latanoprost * Hypothyroidism continue thyroxine * BPH continue tamsulosin * Full code Plan * Postop care as per orthopedics * Restart Eliquis if approved by orthopedics * Pre-existing medical condition management home meds * Continue pain management * Postop PT OT * discharge planning per case management Time Spent With Patient Time: Total time spent is greater than 50% in coordination of care (as documented) at patient's floor/unit and/or counseling patient: QUALITY VTE Deep Vein Thrombosis/Pulmonary Embolism Present on Admission: No
[2020-07-12 09:31] LABS: ALT/SGPT 12 U/L (<40); AST/SGOT 20 U/L (<40); Albumin 2.7 gm/dL (3.2-5.2); Albumin/Globulin Ratio 0.8 (1.0-2.3); Alkaline Phosphatase 58 U/L (39-117); Bilirubin,Direct < 0.2 mg/dL (<0.3); Bilirubin,Total 0.6 mg/dL (0.1-1.0); Blood Urea Nitrogen 26 mg/dL (8-23); Calcium 8.6 mg/dL (8.6-10.4); Carbon Dioxide 30 mmol/L (22-30); Chloride 96 mmol/L (96-108); Globulin 3.5 gm/dL (2.2-3.7); Glomerular Filtration Rate 48; Glucose 105 mg/dL (70-105); Lactate Dehydrogenase 250 U/L (135-225); Phosphorous 4.3 mg/dL (2.5-4.5); Triglycerides 46 mg/dL (<150); Uric Acid 7.7 mg/dL (2.5-8.0)
--- NOTE | 2020-07-12 09:34 | Orthopedic Progress Note ---
SUBJECTIVE Subjective Patient information: Note initiated : 07/12/20 at 9:33 am Service Date, if different from initiated Date: [] Patient: Messi Hermosillo 80 y/o M admitted on 07/10/20 for Hip pain. Chief Complaint: []no issues Constitutional Vitals: Vital Signs Temp Pulse Resp BP Pulse Ox 98.6 F 60 14 106/66 96 07/12/20 04:38 07/12/20 04:38 07/12/20 04:38 07/12/20 04:38 07/12/20 04:38 Period Temp Pulse Resp BP Sys/Thomas Pulse Ox Last 24 Hr 97.3 F-99.1 F 48-72 14-18 101-151/59-75 87-100 Intake and Output 07/11/20 07/12/20 07/12/20 22:59 05:59 13:59 Intake Total Output Total Balance Weight Intake & Output: Intake & Output 07/11/20 07/12/20 07/12/20 22:59 05:59 13:59 Intake Total Output Total Balance Weight Intake: IV Sodium Chloride 0.9% 1,000 ml @ 50 mls/hr IV .Q20H [facility] Rx#: [id number] Lactated Ringers 1,000 ml @ 20 mls/hr IV .Q24H [facility] Rx#: [id number] Oral IV - Manual Only Output: Urine Catheter Amount Void Amount Estimated Blood Loss Other: Urine Appearance Straight Urine Color Straight Urine Odor OBJ DATA Labs CBC & Chem 7: 07/11/20 05:40 07/12/20 05:56 Labs: Abnormal Lab Results 07/12/20 07/12/20 07/11/20 05:57 05:56 05:40 WBC RBC Hgb Hct Neut % (Auto) Lymph % (Auto) Lymph # (Auto) [place] # (Auto) Absolute Neutrophils PT 15.7 H INR 1.2 H Carbon Dioxide 32 H Anion Gap 7.0 L BUN 26 H Creatinine 1.4 H 1.3 H Uric Acid 8.2 H Lactate Dehydrogenase 250 H Albumin 2.7 L 2.9 L Albumin/Globulin Ratio 0.8 L 0.9 L Hyaline Casts 07/11/20 07/10/20 07/10/20 05:40 20:44 17:25 WBC RBC 2.93 L Hgb 9.3 L Hct 29.1 L Neut % (Auto) Lymph % (Auto) Lymph # (Auto) [place] # (Auto) Absolute Neutrophils PT INR Carbon Dioxide 31 H Anion Gap BUN Creatinine 1.3 H Uric Acid Lactate Dehydrogenase Albumin Albumin/Globulin Ratio 0.9 L Hyaline Casts 3 H 07/10/20 17:25 WBC 16.9 H RBC 3.13 L Hgb 10.1 L Hct 30.8 L Neut % (Auto) 84.0 H Lymph % (Auto) 8.8 L Lymph # (Auto) 1.48 L [place] # (Auto) 0.99 H Absolute Neutrophils 14.19 H PT INR Carbon Dioxide Anion Gap BUN Creatinine Uric Acid Lactate Dehydrogenase Albumin Albumin/Globulin Ratio Hyaline Casts Meds: Medications Acetaminophen (Tylenol) 650 mg PO Q4-6HP PRN; Protocol PRN Reason: Per Pain Protocol/Fever > 101 Hydrocodone Bitart/Acetaminophen ([place] 7.5/325mg) 0 tab PO Q4HP PRN; Protocol PRN Reason: Per Pain Protocol Last Admin: 07/11/20 22:10 Dose: 1 tab Documented by: Bisacodyl (Dulcolax) 10 mg [place] Q2-3DAYS PRN PRN Reason: Constipation Docusate Sodium (Colace) 100 mg PO BID [facility] Last Admin: 07/11/20 22:11 Dose: Not Given Documented by: Hydralazine HCl (Apresoline) 10 mg IV Q4-6HP PRN PRN Reason: Hypertension Hydromorphone HCl (Dilaudid) 0.25 - 0.5 mg IV Q4HP PRN; Protocol PRN Reason: Per Pain Protocol Last Admin: 07/11/20 17:37 Dose: 0.25 mg Documented by: Acetaminophen (Ofirmev) 650 mg in 65 mls @ 130 mls/hr IV Q6HP PRN; Protocol PRN Reason: Per Pain Protocol/Fever > 101 Magnesium Sulfate (Magnesium Sulfate) 2 gm in 50 mls @ 50 mls/hr IV UD PRN PRN Reason: MG = or < 1.7 Sodium Chloride (Sodium Chloride 0.9%) 1,000 mls @ 50 mls/hr IV .Q20H [facility] Stop: 07/13/20 07:14 Last Admin: 07/11/20 17:43 Dose: 50 mls/hr Documented by: Cefazolin Sodium 2 gm/ (Dextrose) 50 mls @ 100 mls/hr IV PREOP [facility]; Protocol Last Infusion: 07/11/20 14:45 Dose: Infused Documented by: Iron Carb/Multivit/[place]/Folic Acid (Multivitamin W/Minerals) 1 tab PO DAILY [facility] Last Admin: 07/11/20 07:50 Dose: Not Given Documented by: Magnesium Hydroxide (Milk Of Magnesia) 30 ml PO BIDP PRN PRN Reason: Constipation Melatonin (Melatonin 3mg Tablet) 3 mg PO HSP PRN PRN Reason: Insomnia Methocarbamol (Robaxin) 750 mg IV Q6HP PRN PRN Reason: Muscle Spasm Metoprolol Tartrate (Lopressor) 5 mg IV Q5M PRN PRN Reason: Heart Rate > 140 bpm Ondansetron HCl (Zofran Odt) 4 mg SL Q4-6HP PRN; Protocol PRN Reason: Nausea And Vomiting Ondansetron HCl (Zofran) 4 mg IV Q4-6HP PRN; Protocol PRN Reason: Nausea And Vomiting Polyethylene Glycol (Miralax) 17 gm PO DAILYP PRN PRN Reason: Constipation Potassium Chloride (Klor-Con) 40 meq PO DAILYP PRN PRN Reason: K+ < 3.5 Senna (Senokot) 1 tab PO [facility] Last Admin: 07/11/20 22:11 Dose: Not Given Documented by: Senna/Docusate Sodium (Senna Plus Tablet) 1 tab PO [facility] Last Admin: 07/11/20 22:11 Dose: Not Given Documented by: Sodium Biphosphate/Sodium Phosphate (Fleets Adult) 1 dose [place] Q3-4DAYS PRN PRN Reason: Constipation Sodium Chloride (Saline Flush) 10 ml IV Q8 [facility] Last Admin: 07/12/20 05:49 Dose: 10 ml Documented by: Throat Lozenges (Cepacol) 1 lozenge PO PRN PRN PRN Reason: Sore Throat A/P Narrative A/P Narrative: post rodrigue arthroplasty. No issues. mbilize Time Spent With Patient Time: Total time spent is greater than 50% in coordination of care (as documented) at patient's floor/unit and/or counseling patient: Total time spent with greater than 50% in coordination of care (as documented) at patient's floor/unit and/or counseling patient:: less than 15 minutes
[2020-07-12] MEDS: HYDROCODONE/APAP 7.5/325MG TABLET PO PRN ×2 (09:38→15:10)
[2020-07-12] MEDS: DOCUSATE SODIUM 100 MG CAPSULE PO SCH (09:42)
[2020-07-12] MEDS: MULTIVIT,THER IRON,CA,FA & MIN 1 TABLET PO SCH (09:42)
[2020-07-12] MEDS ORDERED: FLU VACC QS2020-21(6MOS UP)/PF 60 MCG/0.5 ML SYRINGE IM ONE (10:00)
[2020-07-12 10:22] LABS: Band Neutrophils % 3 % (0-10); Hematocrit 28.9 % (41.0-55.0); Hemoglobin 9.3 g/dL (13.5-16.5); Lymphocytes % 7 % (15-49); Mean Corpuscular HGB Conc 32.2 g/dL (31.0-36.0); Mean Platelet Volume 10.4 fL (7.4-10.4); Monocytes % (Manual) 5 % (1-12); Platelet Count 321 K/mcL (140-440); Platelet Estimate NORMAL (Normal); RBC 2.89 M/mcL (4.50-5.90); RBC Morphology NORMAL (Normal); Reactive Lymphocytes 1 % (0-2); Red Cell Distribution Width 14.2 % (11.5-14.5); Segmented Neutrophils % 84 % (38-78); WBC 10.6 K/mcL (4.5-11.0)
[2020-07-12] MEDS: 0.9 % SODIUM CHLORIDE 1,000 ML IV SCH (14:49)
== END 2020-07-12 15:38 | DRG 522 ==
LOC: ED 15:59 → MEDSUR 21:03
PROVIDERS: ADMIT Internal Medicine; ATTEND Internal Medicine

== ENCOUNTER 2021-03-16 14:10 | Inpatient (IN) ==
--- NOTE | 2021-03-16 15:21 | XRay Report ---
HISTORY: Fell 2 days ago with right hip injury FINDINGS: There is a transverse fracture through the base of the femoral neck. There is impaction at the fracture site. In the femoral neck near the trochanters there is a zone of sclerotic bone. There also appears to be reabsorption of bone along the superior border of the femoral neck adjacent to the femoral head. There is joint space narrowing the right hip. Bones are osteoporotic. The patient has an indwelling left hip prosthesis. Severe atherosclerosis is present in the iliac and femoral arteries. IMPRESSION: Fractured right femoral neck. This may be a pathologic fracture. Pelvic CT is recommended for further evaluation. Interpreted and Authenticated by: Yung Jasso 03/16/21
--- NOTE | 2021-03-16 16:14 | XRay Report ---
HISTORY: All with right knee injury FINDINGS: No fracture or dislocation are present. 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 No joint effusion is present. Densely calcified plaques are present in the arteries in the distal thigh extending into the upper calf. IMPRESSION: No fracture Interpreted and Authenticated by: Yung Jasso 03/16/21
--- NOTE | 2021-03-16 16:38 | Emergency Department Note ---
Lower Extremity Injury HPI General Chief Complaint: Extremity Injury, Lower Stated Complaint: right hip pain, fall 2 days ago Time Seen by Provider: 03/16/21 14:39 Source: patient Mode of arrival: wheelchair Limitations: no limitations History of Present Illness HPI Narrative: Patient is a 81-year-old gentleman who arrives to his complaining of a right hip injury. The patient says he was try to get up off of his couch on Monday when he fell, landing on his right hip. He did not strike his head and not lose consciousness. Ever since the fall he has been having pain in his right hip that radiates into his right knee. The pain is worsened with movement. He has not been able to bear significant weight on his leg. After 2 days of persistent symptoms, his convinced him to come to the emergency department for further evaluation. Related Data Home Medications Medication Instructions Recorded Confirmed latanoprost 1 drp OPHTHALMIC (EYE) QHS 07/10/20 03/16/21 levothyroxine 50 mcg PO QDAY 07/10/20 03/16/21 potassium chloride [Klor-Con M20] 20 meq PO DAILY 07/10/20 03/16/21 torsemide 40 mg PO BID 07/10/20 03/16/21 Allergies Allergy/AdvReac Type Severity Reaction Status Date / Time No Known Drug Allergies Allergy Verified 03/16/21 14:13 Review of Systems ROS ROS Narrative: Narrative: All systems ED: reviewed and negative except as stated. Constitutional: Denies fever and chills Cardiovascular: Denies chest pain Respiratory: Denies shortness of breath and cough Gastrointestinal: Denies abdominal pain and nausea PFSH Narrative Patient History Narrative: Narrative: Medical/Surgical/Family History All Active Problems (Updated 03/16/21 @ 17:27 by Norberto Plasencia DO) Acute GI bleeding (Acute) Community acquired pneumonia (Acute) Congestive heart failure (Acute) Closed displaced fracture of right femoral neck (Acute) Hypothyroidism (Acute) Closed fracture of left hip (Acute) Atrial fibrillation (Acute) Medical History Atrial fibrillation Hypothyroidism Surgical History History of permanent cardiac pacemaker placement Social History Smoking Status: Former smoker Alcohol Intake Frequency: former alcohol drinker Substance Use: does not use Exam Narrative Narrative: Gen -patient is awake and alert and in no acute distress. HEENT -head is atraumatic. There is no conjunctival pallor or scleral icterus. CV -S1-S2 regular rate and rhythm. Peripheral pulses are palpable. Resp -breathing is nonlabored. Lungs are clear to auscultation bilaterally. There is no cyanosis. GI - Abdomen is soft and nontender to palpation. There is no guarding or rebound tenderness. Derm -skin is warm and dry. MSK -pelvis is stable. There is mild tenderness to palpation of the soft tissues overlying the right greater trochanter. There is severely limited flexion internal and external rotation of the right hip due to pain. Posterior tibial pulses palpable. Sensation in lower extremities is intact. Psych -patient has appropriate affect. Neuro -patient answers questions appropriately with fluent speech. Patient moves all present extremities equally. General Limitations: no limitations Course Vital Signs Vital signs: Vital Signs Temperature 98.2 F 03/16/21 14:11 Pulse Rate 67 03/16/21 14:11 Respiratory Rate 18 03/16/21 14:11 Blood Pressure 95/60 03/16/21 14:11 Pulse Oximetry (%) 96 03/16/21 14:11 Temperature 98.2 F 03/16/21 14:11 Pulse Rate 60 03/16/21 16:31 Respiratory Rate 18 03/16/21 14:11 Blood Pressure 140/71 03/16/21 16:31 Pulse Oximetry (%) 95 03/16/21 16:31 [facility] Narrative Medical decision making narrative: Patient presents with right hip pain following a fall. X-rays revealed a femoral neck fracture. I discussed the test results with the patient and his and is agreeable with the plan for admission and surgical intervention. I discussed the patient's history examination diagnostic findings with Dr. Castro. He would like the patient admitted to the hospitalist service and kept n.p.o. after midnight for likely operative intervention. He agrees that given the radiologist concerns it would be helpful to obtain CT imaging of the hip. I discussed the patient's history examination and diagnostic findings with Dr. Bangura, who agrees with the plan of care and accepts admission. ED POC Tests ED POC Tests: PARMINDER - SARS Antigen Negative Discharge Plan Patient/Caregiver Discharge Instructions Pt seen by REFERRAL MANAGER/PA only: No Clinical Impression: Closed displaced fracture of right femoral neck Patient Disposition: Xfer As Inpt ([facility]) Condition: Good Follow up with: Valente Salazar MD [Primary Care Provider] - Prescriptions: No Action latanoprost 0.005 % drops 1 drp OPHTHALMIC (EYE) QHS RF: 0 torsemide 20 mg tablet 40 mg PO BID RF: 0 potassium chloride [Klor-Con M20] 20 mEq tablet,ER particles/crystals 20 meq PO DAILY RF: 0 levothyroxine 50 mcg tablet 50 mcg PO QDAY RF: 0
--- NOTE | 2021-03-16 17:08 | Internal Med History&Physical ---
HPI History of Present Illness Patient information: Note initiated : 03/16/21 at 5:04 pm Service Date, if different from initiated Date: [] Patient: Messi Hermosillo a 81 y/o M admitted on for right hip pain, fall 2 days ago. Chief Complaint: [] History of present illness: Mr. Hermosillo is a 81 year old M Presents to the ED with right hip pain. Several days ago patient was getting up from the couch and was transitioning from the rug to the floor when he lost his balance falling with right hip with pain. Pain persisted his convinced to come to the ED. Were x-ray showed a right hip fracture. Dr. Castro was contacted orthopedic surgery. Patient does have a history of atrial fibrillation and does have Eliquis but has not been taking it. Was held temporarily for surgery when he had a left hip fracture last year patient never restarted it because he feels per his he bleeds easily. Review of Systems: Pertinent positives above. Denies headache/fever/chills/nausea/vomiting/chest or abdominal pain/cough/dyspnea/diarrhea. Remaining 10 point review of system reviewed negative PFSH PFSH All Active Problems Acute GI bleeding (Acute) Community acquired pneumonia (Acute) Congestive heart failure (Acute) Hypothyroidism (Acute) Closed fracture of left hip (Acute) Atrial fibrillation (Acute) Medical History Atrial fibrillation Hypothyroidism Surgical History History of permanent cardiac pacemaker placement Social History alcohol intake frequency: former alcohol drinker substance use type: does not use MEDS/ALLERGIES Home Medications and Allergies Home Medications Medication Instructions Recorded Confirmed Type latanoprost 1 drp OPHTHALMIC (EYE) QHS 07/10/20 03/16/21 History levothyroxine 50 mcg PO QDAY 07/10/20 03/16/21 History potassium chloride [Klor-Con M20] 20 meq PO DAILY 07/10/20 03/16/21 History torsemide 40 mg PO BID 07/10/20 03/16/21 History Allergies Allergy/AdvReac Type Severity Reaction Status Date / Time No Known Drug Allergies Allergy Verified 03/16/21 14:13 EXAM Constitutional Vitals: Temp Pulse Resp BP Pulse Ox 98.2 F 60 18 140/71 95 03/16/21 14:11 03/16/21 16:31 03/16/21 14:11 03/16/21 16:31 03/16/21 16:31 Exam: General: Alert, Awake, No acute Distress Eyes/N/T: EOMI, PERRL, Head/Neck: neck supple, normocephalic atraumatic CV: Regular at this time, No murmurs, normal s1/s2 Pulm: Clear b/l, no wheezing/rhonchi/rales Abd: soft, nontender, +BS x4 Ext: no clubbing/cyanosis/edema. Right leg shortened externally rotated Neuro: Alert, no focal deficits, moves all extremities, CN 2-12 grossly intact, symmetrical strength b/l upper/lower, sensations intact b/l upper/lower Skin: warm/dry A/P Narrative A/P Narrative: A: *Right hip fracture: *Atrial fibrillation w/PPM: Has not restarted his Eliquis since his last hip sx 2019 *Hypothyroidism: *Anemia, chronic * P: -Dr. Castro for orthopedic surgery -Restart Eliquis postop -Labs pending - -PT/OT -ppx: SCDs and postop Eliquis Full code Time Spent With Patient Time: Total time spent is greater than 50% in coordination of care (as documented) at patient's floor/unit and/or counseling patient:
--- NOTE | 2021-03-16 17:51 | Cat Scan Report ---
History: Right femoral neck fracture TECHNIQUE: The pelvis was imaged without contrast in axial plane at 2.5 mm intervals. Sagittal and coronal reformats were created. Radiation exposure was limited using dose reduction technology. FINDINGS: There is a subacute to chronic impaction fracture of the right femoral neck. There is remodeling of bone the fracture site and a small amount callus. There is some resorption of bone along the superior lateral border of the femoral neck. There is varus angulation area there is no evidence of an underlying neoplasm. The pelvic bones are intact. There is a well-positioned left hip prosthesis and there is no reabsorption of bone around the hardware. Minor arthritis is present in the SI joints. In the lumbar spine there is mild disc space narrowing at L3-4 and L4-5.1 No pelvic hematoma or ascites are present. There is relatively little soft tissue swelling around the fractured right femoral neck. IMPRESSION: Subacute incompletely healed fracture of the right femoral neck with impaction deformity and mild resorption of bone in the femoral head The ER doctor was called with the report Interpreted and Authenticated by: Yung Jasso 03/16/21
[2021-03-16 18:05] LABS: POC Calcium, Ionized 1.12 mmEq/L (1.16-1.32); POC Creatinine 1.9 mg/dL (0.6-1.2); POC Potassium 4.9 mEql/L (3.3-5.1)
[2021-03-16 18:45] LABS: Basophils # (Auto) 0.05 K/mcL (0.00-0.20); Basophils % (Auto) 0.6 % (0.0-2.0); Eosinophils # (Auto) 0.01 K/mcL (0.00-0.70); Eosinophils % (Auto) 0.1 % (0.0-7.0); Hemoglobin 11.9 g/dL (13.5-16.5); Lymphocytes # (Auto) 1.32 K/mcL (1.50-4.80); Lymphocytes % (Auto) 16.1 % (15.0-49.0); Mean Cell Volume 93.3 fL (80.0-100.0); Mean Corpuscular HGB Conc 33.1 g/dL (31.0-36.0); Mean Platelet Volume 10.8 fL (7.4-10.4); Monocytes # (Auto) 0.82 K/mcL (0.10-0.90); Neutrophils % (Auto) 73.2 % (38.0-78.0); Platelet Count 320 K/mcL (140-440); RBC 3.86 M/mcL (4.50-5.90); Red Cell Distribution Width 15.5 % (11.5-14.5); WBC 8.2 K/mcL (4.5-11.0)
[2021-03-16 19:13] LABS: ALT/SGPT 12 U/L (<40); AST/SGOT 18 U/L (<40); Albumin 3.1 gm/dL (3.2-5.2); Albumin/Globulin Ratio 0.8 (1.0-2.3); Alkaline Phosphatase 72 U/L (39-117); Bilirubin,Direct < 0.2 mg/dL (0-0.3); Bilirubin,Total 0.8 mg/dL (0.1-1.0); Blood Urea Nitrogen 34 mg/dL (8-23); Calcium 8.5 mg/dL (8.6-10.4); Carbon Dioxide 26 mmol/L (22-30); Chloride 95 mmol/L (96-108); Globulin 3.9 gm/dL (2.2-3.7); Glomerular Filtration Rate 35; Glucose 87 mg/dL (70-105); Lactate Dehydrogenase 259 U/L (135-225); Phosphorous 3.9 mg/dL (2.5-4.5); Triglycerides 71 mg/dL (<150)
[2021-03-16] MEDS ORDERED: MAGNESIUM SULFATE 2 GM/50 ML BAG IV PRN (19:16)
[2021-03-16] MEDS ORDERED: ONDANSETRON 4 MG/2 ML VIAL IV PRN (19:16)
[2021-03-16] MEDS ORDERED: HYDROcodone/APAP 5/325MG TABLET PO PRN (19:16)
[2021-03-16] MEDS ORDERED: SENNOSIDES 1 TABLET PO PRN (19:16)
[2021-03-16] MEDS ORDERED: morphine 4 MG/ML VIAL IV PRN (19:16)
[2021-03-16] MEDS ORDERED: POTASSIUM CHLORIDE 40 MEQ in DEXTROSE 5% IN WATER 500 ML IV PRN (19:16)
[2021-03-16] MEDS ORDERED: POLYETHYLENE GLYCOL 3350 17 GM PACKET PO PRN (19:16)
[2021-03-16] MEDS ORDERED: POTASSIUM CHLORIDE 20 MEQ TABLET PO PRN ×2 (19:16)
[2021-03-16] MEDS ORDERED: METOCLOPRAMIDE 10 MG/2 ML VIAL IV PRN (19:16)
[2021-03-16] MEDS ORDERED: IPRATROPIUM/ALBUTEROL 3 ML AMPUL.NEB NEB PRN (19:16)
[2021-03-16] MEDS ORDERED: 0.9 % SODIUM CHLORIDE 500 ML IV ONE (19:24)
[2021-03-16] MEDS: ACETAMINOPHEN 325 MG TABLET PO PRN (20:17)
[2021-03-16] MEDS: 0.9 % SODIUM CHLORIDE 10 ML SYRINGE IV SCH (20:18)
[2021-03-16] MEDS: 0.9 % SODIUM CHLORIDE 1,000 ML IV SCH ×2 (20:18→23:47)
[2021-03-16] MEDS: DOCUSATE SODIUM 100 MG CAPSULE PO SCH (20:21)
[2021-03-16] MEDS: LATANOPROST OPHTH DROPS 2.5ML BOTTLE OU SCH (21:26)
[2021-03-16] MEDS ORDERED: 0.9 % SODIUM CHLORIDE 1,000 ML IV SCH (23:00)
[2021-03-17] MEDS: 0.9 % SODIUM CHLORIDE 10 ML SYRINGE IV SCH ×3 (05:00→22:07)
[2021-03-17 06:48] LABS: Basophils # (Auto) 0.04 K/mcL (0.00-0.20); Basophils % (Auto) 0.6 % (0.0-2.0); Eosinophils # (Auto) 0.07 K/mcL (0.00-0.70); Hematocrit 33.5 % (41.0-55.0); Lymphocytes # (Auto) 1.46 K/mcL (1.50-4.80); Lymphocytes % (Auto) 21.8 % (15.0-49.0); Mean Cell Volume 92.8 fL (80.0-100.0); Mean Corpuscular HGB Conc 32.8 g/dL (31.0-36.0); Mean Platelet Volume 10.2 fL (7.4-10.4); Monocytes # (Auto) 0.85 K/mcL (0.10-0.90); Monocytes % (Auto) 12.7 % (1.0-12.0); Neutrophils % (Auto) 63.9 % (38.0-78.0); Platelet Count 313 K/mcL (140-440); RBC 3.61 M/mcL (4.50-5.90); Red Cell Distribution Width 15.3 % (11.5-14.5); WBC 6.7 K/mcL (4.5-11.0)
[2021-03-17 06:58] LABS: INR 1.2 (0.9-1.1); Prothrombin Time 15.3 sec (11.9-14.5)
[2021-03-17] MEDS ORDERED: SCOPOLAMINE 1 PATCH PATCH TOPICAL PRN (07:03)
[2021-03-17 07:04] LABS: ALT/SGPT 11 U/L (<40); AST/SGOT 12 U/L (<40); Albumin 2.8 gm/dL (3.2-5.2); Albumin/Globulin Ratio 0.8 (1.0-2.3); Alkaline Phosphatase 61 U/L (39-117); Bilirubin,Direct < 0.2 mg/dL (0-0.3); Bilirubin,Total 0.6 mg/dL (0.1-1.0); Blood Urea Nitrogen 33 mg/dL (8-23); Calcium 7.9 mg/dL (8.6-10.4); Carbon Dioxide 27 mmol/L (22-30); Chloride 102 mmol/L (96-108); Globulin 3.4 gm/dL (2.2-3.7); Glomerular Filtration Rate 44; Glucose 81 mg/dL (70-105); Lactate Dehydrogenase 181 U/L (135-225); Triglycerides 63 mg/dL (<150)
--- NOTE | 2021-03-17 08:06 | Consultation ---
DATE OF CONSULTATION: 03/17/2021 DATE OF CONSULTATION: 03/17/2021 REASON FOR CONSULTATION: Right hip fracture. REQUESTING PHYSICIAN: Norberto Plasencia DO CONSULTING PHYSICIAN: Dr Lg Castro HISTORY OF PRESENT ILLNESS: This is a 81-year-old male who presented after a fall several days earlier with pain in his right hip. He was unable to bear weight, but did not go to the Emergency Department until yesterday. He had x-ray taken, which showed a displaced femoral neck fracture. Denies any other associated injuries. Pain is better with immobilization, worse with movement. PAST MEDICAL HISTORY: Atrial fibrillation and hypothyroidism. PAST SURGICAL HISTORY: Positive for left hip fracture treated with hemiarthroplasty 8 months ago. He has also had a pacemaker placed. MEDICATIONS: Latanoprost eyedrops, levothyroxine 50 mcg a day, potassium chloride 20 mEq a day and torsemide 40 mg twice a day. ALLERGIES: He has no known drug allergies. SOCIAL HISTORY: He is a former alcohol drinker. No illicit drug use. REVIEW SYSTEMS: Negative for chest pain, shortness of breath, fever, chills, nausea, vomiting, diarrhea, loss of consciousness. FAMILY HISTORY: Noncontributory. PHYSICAL EXAMINATION: Vital Signs: Yesterday on admission, temperature 98.2, pulse 60, respirations 18, blood pressure 140/71, pulse ox 95% on room air. General: His exam this morning shows he is awake and alert, in no acute distress. He is oriented to person and place. Mood and affect are appropriate. Extremities: Bilateral upper extremities and left lower extremities show no obvious evidence of injury and are normal to inspection, range of motion, stability, and strength. Right lower extremity shows limited range of motion with some shortening, is grossly unstable. His x-ray reviewed shows a right femoral neck fracture with a left hip hemiarthroplasty in place. IMPRESSION: Closed right femoral neck fracture in a 81-year-old male. PLAN: I recommend proceeding with open treatment of the right femoral neck fracture with prosthetic hemiarthroplasty. Risks of surgery include, but not limited to bleeding; infection; injury to nerves, blood vessels, other surrounding structures; anesthetic risks; dislocation; DVT and pulmonary embolus risks; possibility of needing further revision surgery. He understands these risks and wishes to proceed. YANNI:arthur Job ID: [id number] Doc ID: [id number] Lg Castro MD
--- NOTE | 2021-03-17 08:08 | Internal Med Progress Note ---
SUBJECTIVE Subjective Patient information: Note initiated : 03/17/21 at 8:05 am Service Date, if different from initiated Date: [] Patient: Messi Hermosillo a 81 y/o M admitted on 03/16/21 for right hip pain, fall 2 days ago. Chief Complaint: [] Interval history: History of present illness: Mr. Hermosillo is a 81 year old M Presents to the ED with right hip pain. Several days ago patient was getting up from the couch and was transitioning from the rug to the floor when he lost his balance falling with right hip with pain. Pain persisted his convinced to come to the ED. Were x-ray showed a right hip fracture. Dr. Castro was contacted orthopedic surgery. Patient does have a history of atrial fibrillation and does have Eliquis but has not been taking it. Was held temporarily for surgery when he had a left hip fracture last year patient never restarted it because he feels per his he bleeds easily. 03/17 No new complaints overnight events. Awaiting surgery. Constitutional Vitals: Vital Signs Temp Pulse Resp BP Pulse Ox 98.3 F 61 20 113/63 91 03/17/21 07:07 03/17/21 07:07 03/17/21 07:07 03/17/21 07:07 03/17/21 07:07 Period Temp Pulse Resp BP Sys/Thomas Pulse Ox Last 24 Hr 98.0 F-98.3 F 60-164 14-20 95-144/60-77 91-99 Intake and Output 03/16/21 03/17/21 03/17/21 21:59 05:59 13:59 Intake Total 500 1300 Output Total 25 650 275 Balance 475 650 -275 Weight 75.07 kg Intake & Output: Intake & Output 03/16/21 03/17/21 03/17/21 21:59 05:59 13:59 Intake Total 500 1300 Output Total 25 650 275 Balance 475 650 -275 Weight 75.07 kg Intake: IV 500 1000 Sodium Chloride 0.9% 1,000 ml @ 1000 75 mls/hr IV .[id number] [facility] Rx#: [id number] Sodium Chloride 0.9% 500 ml @ 500 Wide Open IV BOLUS ONE Rx#: [id number] Oral 300 Output: Void Amount 650 275 Stool 25 Other: Meal Tuna sandwich Percent of Meal Consumed 100% Feeding Ability Independent Urine Appearance Clear Clear Urine Color Bright Yellow Bright Yellow Stool Color Green Exam: General: Alert, Awake, No acute Distress Eyes/N/T: EOMI, Head/Neck: neck supple, CV: Regular at this time, No murmurs, Pulm: Clear b/l, no wheezing/rhonchi/rales Abd: soft, nontender, +BS x4 Ext: no clubbing/cyanosis/edema. Right leg shortened externally rotated Neuro: Alert, no focal deficits, moves all extremities, Skin: warm/dry OBJ DATA Labs CBC & Chem 7: 03/17/21 05:16 03/17/21 05:15 Labs: Abnormal Lab Results 03/17/21 03/17/21 03/17/21 05:16 05:16 05:15 RBC 3.61 L Hgb 11.0 L Hct 33.5 L POC Hct RDW 15.3 H MPV [place] % (Auto) 12.7 H Lymph # (Auto) 1.46 L PT 15.3 H INR 1.2 H Chloride POC BUN BUN 33 H Creatinine 1.5 H POC Creatinine Calcium 7.9 L POC WB Ioniz Calcium GGT 7 L Lactate Dehydrogenase Albumin 2.8 L Globulin Albumin/Globulin Ratio 0.8 L 03/16/21 03/16/21 03/16/21 17:51 17:15 17:15 RBC 3.86 L Hgb 11.9 L Hct 36.0 L POC Hct 37 L RDW 15.5 H MPV 10.8 H [place] % (Auto) Lymph # (Auto) 1.32 L PT INR Chloride 95 L POC BUN 36 H BUN 34 H Creatinine 1.8 H POC Creatinine 1.9 H Calcium 8.5 L POC WB Ioniz Calcium 1.12 L GGT Lactate Dehydrogenase 259 H Albumin 3.1 L Globulin 3.9 H Albumin/Globulin Ratio 0.8 L Meds: Medications Acetaminophen (Acetaminophen 325 Mg Tablet) 650 mg PO Q6HP PRN PRN Reason: PAIN/FEVER > 101 Last Admin: 03/16/21 20:17 Dose: 650 mg Documented by: Hydrocodone Bitart/Acetaminophen (Hydrocodone/Apap 5/325mg Tablet) 1 tab PO Q4HP PRN PRN Reason: PAIN LEVEL 3-6 Albuterol/Ipratropium (Ipratropium/Albuterol 3 Ml Ampul.Neb) 3 ml NEB Q4HP PRN PRN Reason: Shortness Of Breath Docusate Sodium (Docusate Sodium 100 Mg Capsule) 100 mg PO BID [facility] Last Admin: 03/16/21 20:21 Dose: 100 mg Documented by: Potassium Chloride 40 meq/ (Dextrose) 520 mls @ 130 mls/hr IV UD PRN PRN Reason: Potassium < 3 Magnesium Sulfate (Magnesium Sulfate) 2 gm in 50 mls @ 50 mls/hr IV UD PRN PRN Reason: Magnesium </= 1.6 Sodium Chloride (Sodium Chloride 0.9%) 1,000 mls @ 75 mls/hr IV .[id number] [facility] Stop: 03/17/21 22:03 Last Admin: 03/16/21 23:47 Dose: 75 mls/hr Documented by: Latanoprost (Latanoprost Ophth Drops 2.5ml Bottle) 1 gtt OU QHS [facility] Last Admin: 03/16/21 21:26 Dose: Not Given Documented by: Levothyroxine Sodium (Levothyroxine 50 Mcg Tablet) 50 mcg PO [facility] Metoclopramide HCl (Metoclopramide 10 Mg/2 Ml Vial) 10 mg IV Q6HP PRN PRN Reason: Nausea And Vomiting Morphine Sulfate (Morphine 4 Mg/Ml Vial) 0 mg IV Q3HP PRN PRN Reason: Pain Ondansetron HCl (Ondansetron 4 Mg/2 Ml Vial) 4 mg IV Q4HP PRN PRN Reason: Nausea And Vomiting Pantoprazole Sodium (Pantoprazole 40 Mg Vial) 40 mg IV [facility] Polyethylene Glycol (Polyethylene Glycol 3350 17 Gm Packet) 17 gm PO DAILYP PRN PRN Reason: Constipation Potassium Chloride (Potassium Chloride 20 Meq Tablet) 40 meq PO UD PRN PRN Reason: Potssium is 3-3.5 Potassium Chloride (Potassium Chloride 20 Meq Tablet) 40 meq PO UD PRN PRN Reason: Potassium < 3 Scopolamine (Scopolamine 1 Patch Patch) 1 patch TOPICAL PREOP PRN PRN Reason: Nausea And Vomiting Stop: 03/17/21 12:00 Senna (Sennosides 1 Tablet) 2 tab PO DAILYP PRN PRN Reason: Constipation Sodium Chloride (0.9 % Sodium Chloride 10 Ml Syringe) 10 ml IV Q8 [facility] Last Admin: 03/17/21 05:00 Dose: Not Given Documented by: A/P Narrative A/P Narrative: A: *Right hip fracture: *Atrial fibrillation w/PPM: Has not restarted his Eliquis since his last hip sx 2019 *Hypothyroidism: *Anemia, chronic *?BLANKA on CKD III(unknown baseline): P: -Dr. Castro for orthopedic surgery -IVF -Restart Eliquis postop -Labs pending - -PT/OT -ppx: SCDs and postop Eliquis Full code Time Spent With Patient Time: Total time spent is greater than 50% in coordination of care (as documented) at patient's floor/unit and/or counseling patient: QUALITY VTE Deep Vein Thrombosis/Pulmonary Embolism Present on Admission: No
[2021-03-17] MEDS: ACETAMINOPHEN 325 MG TABLET PO PRN (08:27)
[2021-03-17] MEDS: LEVOTHYROXINE 50 MCG TABLET PO SCH (08:27)
[2021-03-17] MEDS: PANTOPRAZOLE 40 MG VIAL IV SCH (08:28)
[2021-03-17] MEDS: 0.9 % SODIUM CHLORIDE 1,000 ML IV SCH ×2 (08:58→18:33)
--- NOTE | 2021-03-17 09:02 | Brief Operative Note ---
Brief Operative Note Date of procedure: 03/17/21 Pre-op diagnosis: Right hip severe OA Post-op diagnosis: same Procedure: Right robotic assisted anterior total hip arthroplasty Grafts/Implants: Yes (Jodi Accolade II 5 132 deg stem, +0 36 head, 48 cup, neutral liner) Anesthesia: spinal and GLMA Findings: severe arthritis, large joint effusion Complications: none Surgeon: Lg Castro Metal Washing Machine Operator: Cooper Max Estimated blood loss (cc): 150 Specimens Removed/Pathology: none sent Condition: stable Disposition: PACU
[2021-03-17] MEDS: DOCUSATE SODIUM 100 MG CAPSULE PO SCH ×2 (11:46→21:30)
--- NOTE | 2021-03-17 11:52 | EKG ---
[facility] Test Date: 2021-03-17 Pat Name: Messi Hermosillo Department: MEDR Room: 129 Gender: Male Alignment Technician: : 1940 Requested By: Dima Higginbotham Order Number: [id number] Reading MD: Mat Casiano M.D. Measurements Intervals [place] Rate: 60 P: 0 MA: 240 QRS: 111 QRSD: 136 T: -90 QT: 468 QTc: 468 Interpretive Statements VENTRICULAR-PACED COMPLEXES MINIMAL ST DEPRESSION, INFERIOR LEADS NO PRIOR TRACING FOR COMPARISON ABNORMAL ECG Electronically Signed On 03-17-2021 11:52:29 PDT by Mat Casiano M.D. /store/[email or web address]/[id number]
[2021-03-17] MEDS ORDERED: KETAMINE 50 MG/ML ML ONE (14:10)
[2021-03-17] MEDS ORDERED: PHENYLEPHRINE 10 MG/ML VIAL ONE (14:10)
[2021-03-17] MEDS ORDERED: GLYCOPYRROLATE 0.2 MG/ML VIAL IV ONE (14:10)
[2021-03-17] MEDS ORDERED: DEXAMETHASONE 10 MG/ML VIAL ONE (14:10)
[2021-03-17] MEDS ORDERED: ROPIVACAINE HCL/PF 30 ML VIAL IJ ONE (14:10)
[2021-03-17] MEDS ORDERED: TRANEXAMIC ACID 1,000 MG/10 ML VIAL IV ONE (14:10)
[2021-03-17] MEDS ORDERED: ONDANSETRON 4 MG/2 ML VIAL ONE (14:10)
[2021-03-17] MEDS ORDERED: LIDOCAINE HCL/PF 100 MG/5 ML SYRINGE IV ONE (14:10)
[2021-03-17] MEDS ORDERED: PROPOFOL 200 MG/20 ML VIAL IV ONE (14:10)
[2021-03-17] MEDS ORDERED: fentaNYL 100 MCG/2 ML VIAL IV ONE (14:10)
[2021-03-17] MEDS ORDERED: MAGNESIUM SULFATE 2 GM/50 ML BAG IV ONE (14:10)
[2021-03-17] MEDS ORDERED: ceFAZolin 2 GM in DEXTROSE 5% IN WATER 50 ML IV SCH ×2 (14:15→15:30)
--- NOTE | 2021-03-17 15:18 | Brief Operative Note ---
Brief Operative Note Date of procedure: 03/17/21 Pre-op diagnosis: Right displaced femoral neck fracture, closed Post-op diagnosis: same Procedure: Open treatment of Right femoral neck fracture with prosthetic hemiarthroplasty Grafts/Implants: Yes ([place] 8 cemented 132 omni fit [place] stem, +10 neck, 51 bipolar head) Anesthesia: GLMA Findings: displaced fracture, osteoporosis Complications: none Surgeon: Lg Castro Wholesale Diamond Broker: Cooper Max Estimated blood loss (cc): 150 Specimens Removed/Pathology: none sent Condition: stable Disposition: PACU
[2021-03-17] MEDS ORDERED: LACTATED RINGERS 250 ML IV PRN (15:55)
[2021-03-17] MEDS ORDERED: IPRATROPIUM/ALBUTEROL 3 ML AMPUL.NEB NEB PRN (15:55)
[2021-03-17] MEDS ORDERED: METHOCARBAMOL 1,000 MG/10 ML VIAL IV PRN (15:55)
[2021-03-17] MEDS ORDERED: fentaNYL 100 MCG/2 ML VIAL IV PRN (15:55)
[2021-03-17] MEDS ORDERED: ONDANSETRON 4 MG/2 ML VIAL IV PRN (15:55)
[2021-03-17] MEDS ORDERED: NALOXONE HCL 0.4 MG/ML VIAL IV PRN (15:55)
[2021-03-17] MEDS ORDERED: BENZOCAINE/MENTHOL 1 LOZENGE PO PRN (15:55)
[2021-03-17] MEDS ORDERED: HYDROmorphone 0.5 MG/0.5 ML SYRINGE IV PRN (15:55)
[2021-03-17] MEDS ORDERED: ACETAMINOPHEN 1,000 MG/100 ML BAG IV ONE (15:55)
[2021-03-17] MEDS ORDERED: LACTATED RINGERS 1,000 ML IV SCH (16:00)
[2021-03-17] MEDS ORDERED: LORazepam 2 MG/ML VIAL IV ONE (16:09)
[2021-03-17] MEDS ORDERED: LORazepam 2 MG/ML VIAL ONE (16:12)
--- NOTE | 2021-03-17 16:53 | XRay Report ---
HISTORY: Postop right hip arthroplasty FINDINGS: There is a well-positioned right total hip prosthesis. There is no fracture or abnormal soft tissue calcification. Pelvic bones are osteopenic. There is an indwelling left hip prosthesis which remains well positioned. Large amount calcified plaque is present in the arteries in the pelvis and both thighs. IMPRESSION: well-positioned right hip prosthesis Interpreted and Authenticated by: Yung Jasso 03/17/21
[2021-03-17] MEDS ORDERED: FLUMAZENIL 0.1 MG/ML ML IV ONE ×3 (17:54→18:29)
[2021-03-17] MEDS ORDERED: ACETAMINOPHEN 1,000 MG/100 ML BAG IV PRN (21:26)
[2021-03-17] MEDS: LATANOPROST OPHTH DROPS 2.5ML BOTTLE OU SCH (21:31)
[2021-03-17] MEDS: ceFAZolin 1 GM VIAL IV SCH (22:07)
[2021-03-18] MEDS: ceFAZolin 1 GM VIAL IV SCH (05:53)
[2021-03-18] MEDS: 0.9 % SODIUM CHLORIDE 10 ML SYRINGE IV SCH ×3 (05:53→20:53)
[2021-03-18] MEDS: ACETAMINOPHEN 325 MG TABLET PO PRN ×3 (06:13→23:48)
[2021-03-18 06:27] LABS: Hematocrit 34.1 % (41.0-55.0); Hemoglobin 10.8 g/dL (13.5-16.5)
[2021-03-18] MEDS: LEVOTHYROXINE 50 MCG TABLET PO SCH (06:47)
[2021-03-18] MEDS: PANTOPRAZOLE 40 MG VIAL IV SCH (06:47)
[2021-03-18] MEDS: 0.9 % SODIUM CHLORIDE 1,000 ML IV SCH (06:47)
[2021-03-18 07:14] LABS: ALT/SGPT 13 U/L (<40); AST/SGOT 24 U/L (<40); Albumin 2.9 gm/dL (3.2-5.2); Albumin/Globulin Ratio 0.8 (1.0-2.3); Alkaline Phosphatase 63 U/L (39-117); Bilirubin,Direct < 0.2 mg/dL (0-0.3); Bilirubin,Total 0.3 mg/dL (0.1-1.0); Blood Urea Nitrogen 31 mg/dL (8-23); Calcium 8.3 mg/dL (8.6-10.4); Carbon Dioxide 25 mmol/L (22-30); Chloride 103 mmol/L (96-108); Globulin 3.5 gm/dL (2.2-3.7); Glomerular Filtration Rate 47; Glucose 118 mg/dL (70-105); Lactate Dehydrogenase 227 U/L (135-225); Phosphorous 5.3 mg/dL (2.5-4.5); Triglycerides 67 mg/dL (<150); Uric Acid 7.8 mg/dL (2.5-8.0)
--- NOTE | 2021-03-18 07:47 | Internal Med Progress Note ---
SUBJECTIVE Subjective Patient information: Note initiated : 03/18/21 at 7:44 am Service Date, if different from initiated Date: [] Patient: Messi Hermosillo a 81 y/o M admitted on 03/16/21 for right hip pain, fall 2 days ago. Chief Complaint: [] Interval history: History of present illness: Mr. Hermosillo is a 81 year old M Presents to the ED with right hip pain. Several days ago patient was getting up from the couch and was transitioning from the rug to the floor when he lost his balance falling with right hip with pain. Pain persisted his convinced to come to the ED. Were x-ray showed a right hip fracture. Dr. Castro was contacted orthopedic surgery. Patient does have a history of atrial fibrillation and does have Eliquis but has not been taking it. Was held temporarily for surgery when he had a left hip fracture last year patient never restarted it because he feels per his he bleeds easily. 03/17 No new complaints overnight events. Awaiting surgery. 03/18 Patient had a poor reaction to anesthesia and did require some flumazenil. Patient feeling good this morning sitting up eating breakfast. No new complaints. Review of Systems: denies headache/fever/chills/nausea/vomiting/chest or abdominal pain/cough/dyspnea/diarrhea. Otherwise see above. Constitutional Vitals: Vital Signs Temp Pulse Resp BP Pulse Ox 96.8 F L 60 20 98/57 93 03/18/21 03:30 03/18/21 03:30 03/18/21 03:30 03/18/21 03:30 03/18/21 03:30 Period Temp Pulse Resp BP Sys/Thomas Pulse Ox Last 24 Hr 96.5 F-98.5 F 58-65 - 94-120/51-71 87-97 Intake and Output 03/17/21 03/18/21 03/18/21 21:59 05:59 13:59 Intake Total 2500 1150 917 Output Total 950 Balance 1550 1150 917 Weight 75.07 kg 78.698 kg Intake & Output: Intake & Output 03/17/21 03/18/21 03/18/21 21:59 05:59 13:59 Intake Total 2500 1150 917 Output Total 950 Balance 1550 1150 917 Weight 75.07 kg 78.698 kg Intake: IV 1100 50 917 Sodium Chloride 0.9% 1,000 ml @ 1000 917 75 mls/hr IV .[id number] [facility] Rx#: [id number] Ancef 2 gm In Dextrose 5% in 50 Water 50 ml @ 100 mls/hr IV PREOP [facility] Rx#:[id number] Oral 1100 IV - Manual Only 1400 Output: Urine Catheter Amount 800 Estimated Blood Loss 150 Other: Urine Appearance Clear Urine Color Bright Yellow Exam: General: Alert, Awake, No acute Distress Eyes/N/T: EOMI, Head/Neck: neck supple, CV: Regular at this time, No murmurs, Pulm: Clear b/l, no wheezing/rhonchi/rales Abd: soft, nontender, +BS x4 Ext: no clubbing/cyanosis/edema. Right hip dressings Neuro: Alert, no focal deficits, moves all extremities, Skin: warm/dry OBJ DATA Labs CBC & Chem 7: 03/18/21 05:34 03/18/21 05:34 Labs: Abnormal Lab Results 03/18/21 03/18/21 03/17/21 05:34 05:34 05:16 RBC Hgb 10.8 L Hct 34.1 L POC Hct RDW MPV [place] % (Auto) Lymph # (Auto) PT 15.3 H INR 1.2 H Chloride POC BUN BUN 31 H Creatinine 1.4 H POC Creatinine Glucose 118 H Calcium 8.3 L POC WB Ioniz Calcium Phosphorus 5.3 H Magnesium 2.8 H GGT Lactate Dehydrogenase 227 H Albumin 2.9 L Globulin Albumin/Globulin Ratio 0.8 L 03/17/21 03/17/21 03/16/21 05:16 05:15 17:51 RBC 3.61 L Hgb 11.0 L Hct 33.5 L POC Hct 37 L RDW 15.3 H MPV [place] % (Auto) 12.7 H Lymph # (Auto) 1.46 L PT INR Chloride POC BUN 36 H BUN 33 H Creatinine 1.5 H POC Creatinine 1.9 H Glucose Calcium 7.9 L POC WB Ioniz Calcium 1.12 L Phosphorus Magnesium GGT 7 L Lactate Dehydrogenase Albumin 2.8 L Globulin Albumin/Globulin Ratio 0.8 L 03/16/21 03/16/21 17:15 17:15 RBC 3.86 L Hgb 11.9 L Hct 36.0 L POC Hct RDW 15.5 H MPV 10.8 H [place] % (Auto) Lymph # (Auto) 1.32 L PT INR Chloride 95 L POC BUN BUN 34 H Creatinine 1.8 H POC Creatinine Glucose Calcium 8.5 L POC WB Ioniz Calcium Phosphorus Magnesium GGT Lactate Dehydrogenase 259 H Albumin 3.1 L Globulin 3.9 H Albumin/Globulin Ratio 0.8 L Meds: Medications Acetaminophen (Acetaminophen 325 Mg Tablet) 650 mg PO Q6HP PRN PRN Reason: PAIN/FEVER > 101 Last Admin: 03/18/21 06:13 Dose: 650 mg Documented by: Hydrocodone Bitart/Acetaminophen (Hydrocodone/Apap 5/325mg Tablet) 1 tab PO Q4HP PRN PRN Reason: PAIN LEVEL 3-6 Albuterol/Ipratropium (Ipratropium/Albuterol 3 Ml Ampul.Neb) 3 ml NEB Q4HP PRN PRN Reason: Shortness Of Breath Docusate Sodium (Docusate Sodium 100 Mg Capsule) 100 mg PO BID [facility] Last Admin: 03/17/21 21:30 Dose: Not Given Documented by: Enoxaparin Sodium (Enoxaparin 40 Mg/0.4 Ml Syringe) 40 mg SQ DAILY [facility] Potassium Chloride 40 meq/ (Dextrose) 520 mls @ 130 mls/hr IV UD PRN PRN Reason: Potassium < 3 Magnesium Sulfate (Magnesium Sulfate) 2 gm in 50 mls @ 50 mls/hr IV UD PRN PRN Reason: Magnesium </= 1.6 Sodium Chloride (Sodium Chloride 0.9%) 1,000 mls @ 75 mls/hr IV .[id number] [facility] Last Admin: 03/18/21 06:47 Dose: 75 mls/hr Documented by: Latanoprost (Latanoprost Ophth Drops 2.5ml Bottle) 1 gtt OU QHS [facility] Last Admin: 03/17/21 21:31 Dose: Not Given Documented by: Levothyroxine Sodium (Levothyroxine 50 Mcg Tablet) 50 mcg PO QAMAC [facility] Last Admin: 03/18/21 06:47 Dose: 50 mcg Documented by: Metoclopramide HCl (Metoclopramide 10 Mg/2 Ml Vial) 10 mg IV Q6HP PRN PRN Reason: Nausea And Vomiting Morphine Sulfate (Morphine 4 Mg/Ml Vial) 0 mg IV Q3HP PRN PRN Reason: Pain Ondansetron HCl (Ondansetron 4 Mg/2 Ml Vial) 4 mg IV Q4HP PRN PRN Reason: Nausea And Vomiting Last Admin: 03/17/21 20:04 Dose: 4 mg Documented by: Pantoprazole Sodium (Pantoprazole 40 Mg Vial) 40 mg IV QAMAC [facility] Last Admin: 03/18/21 06:47 Dose: 40 mg Documented by: Polyethylene Glycol (Polyethylene Glycol 3350 17 Gm Packet) 17 gm PO DAILYP PRN PRN Reason: Constipation Potassium Chloride (Potassium Chloride 20 Meq Tablet) 40 meq PO UD PRN PRN Reason: Potssium is 3-3.5 Potassium Chloride (Potassium Chloride 20 Meq Tablet) 40 meq PO UD PRN PRN Reason: Potassium < 3 Senna (Sennosides 1 Tablet) 2 tab PO DAILYP PRN PRN Reason: Constipation Sodium Chloride (0.9 % Sodium Chloride 10 Ml Syringe) 10 ml IV Q8 [facility] Last Admin: 03/18/21 05:53 Dose: Not Given Documented by: A/P Narrative A/P Narrative: A: *Right hip fracture: s/p ORIF (03/17) *Atrial fibrillation w/PPM: Has not restarted his Eliquis since his last hip sx 2019 *Hypothyroidism: *Anemia, chronic: *?BLANKA on CKD III(unknown baseline): stable P: -Dr. Castro for orthopedic surgery -IVF - -PT/OT -ppx: enoxaparin per ortho, restart Eliquis prior to d/c Full code Time Spent With Patient Time: Total time spent is greater than 50% in coordination of care (as documented) at patient's floor/unit and/or counseling patient: QUALITY VTE Deep Vein Thrombosis/Pulmonary Embolism Present on Admission: No
--- NOTE | 2021-03-18 07:56 | Orthopedic Progress Note ---
SUBJECTIVE Subjective Patient information: Note initiated : 03/18/21 at 7:54 am Service Date, if different from initiated Date: [] Patient: Messi Hermosillo 81 y/o M admitted on 03/16/21 for right hip pain, fall 2 days ago. Chief Complaint: Mild pain Constitutional Vitals: Vital Signs Temp Pulse Resp BP Pulse Ox 96.8 F L 87 20 90/58 93 03/18/21 07:49 03/18/21 07:49 03/18/21 07:49 03/18/21 07:49 03/18/21 07:49 Period Temp Pulse Resp BP Sys/Thomas Pulse Ox Last 24 Hr 96.5 F-98.5 F 58-87 - 90-120/51-71 87-97 Intake and Output 03/17/21 03/18/21 03/18/21 21:59 05:59 13:59 Intake Total 2500 1150 917 Output Total 950 Balance 1550 1150 917 Weight 165 lb 8 oz 173 lb 8 oz bandages c/d/i nvi-distal Intake & Output: Intake & Output 03/17/21 03/18/21 03/18/21 21:59 05:59 13:59 Intake Total 2500 1150 917 Output Total 950 Balance 1550 1150 917 Weight 165 lb 8 oz 173 lb 8 oz Intake: IV 1100 50 917 Sodium Chloride 0.9% 1,000 ml @ 1000 917 75 mls/hr IV .[id number] [facility] Rx#: [id number] Ancef 2 gm In Dextrose 5% in 50 Water 50 ml @ 100 mls/hr IV PREOP [facility] Rx#:[id number] Oral 1100 IV - Manual Only 1400 Output: Urine Catheter Amount 800 Estimated Blood Loss 150 Other: Urine Appearance Clear Urine Color Bright Yellow OBJ DATA Labs CBC & Chem 7: 03/18/21 05:34 03/18/21 05:34 Labs: Abnormal Lab Results 03/18/21 03/18/21 03/17/21 05:34 05:34 05:16 RBC Hgb 10.8 L Hct 34.1 L POC Hct RDW MPV [place] % (Auto) Lymph # (Auto) PT 15.3 H INR 1.2 H Chloride POC BUN BUN 31 H Creatinine 1.4 H POC Creatinine Glucose 118 H Calcium 8.3 L POC WB Ioniz Calcium Phosphorus 5.3 H Magnesium 2.8 H GGT Lactate Dehydrogenase 227 H Albumin 2.9 L Globulin Albumin/Globulin Ratio 0.8 L 03/17/21 03/17/21 03/16/21 05:16 05:15 17:51 RBC 3.61 L Hgb 11.0 L Hct 33.5 L POC Hct 37 L RDW 15.3 H MPV [place] % (Auto) 12.7 H Lymph # (Auto) 1.46 L PT INR Chloride POC BUN 36 H BUN 33 H Creatinine 1.5 H POC Creatinine 1.9 H Glucose Calcium 7.9 L POC WB Ioniz Calcium 1.12 L Phosphorus Magnesium GGT 7 L Lactate Dehydrogenase Albumin 2.8 L Globulin Albumin/Globulin Ratio 0.8 L 03/16/21 03/16/21 17:15 17:15 RBC 3.86 L Hgb 11.9 L Hct 36.0 L POC Hct RDW 15.5 H MPV 10.8 H [place] % (Auto) Lymph # (Auto) 1.32 L PT INR Chloride 95 L POC BUN BUN 34 H Creatinine 1.8 H POC Creatinine Glucose Calcium 8.5 L POC WB Ioniz Calcium Phosphorus Magnesium GGT Lactate Dehydrogenase 259 H Albumin 3.1 L Globulin 3.9 H Albumin/Globulin Ratio 0.8 L Meds: Medications Acetaminophen (Acetaminophen 325 Mg Tablet) 650 mg PO Q6HP PRN PRN Reason: PAIN/FEVER > 101 Last Admin: 03/18/21 06:13 Dose: 650 mg Documented by: Hydrocodone Bitart/Acetaminophen (Hydrocodone/Apap 5/325mg Tablet) 1 tab PO Q4HP PRN PRN Reason: PAIN LEVEL 3-6 Albuterol/Ipratropium (Ipratropium/Albuterol 3 Ml Ampul.Neb) 3 ml NEB Q4HP PRN PRN Reason: Shortness Of Breath Docusate Sodium (Docusate Sodium 100 Mg Capsule) 100 mg PO BID [facility] Last Admin: 03/17/21 21:30 Dose: Not Given Documented by: Enoxaparin Sodium (Enoxaparin 40 Mg/0.4 Ml Syringe) 40 mg SQ DAILY [facility] Potassium Chloride 40 meq/ (Dextrose) 520 mls @ 130 mls/hr IV UD PRN PRN Reason: Potassium < 3 Magnesium Sulfate (Magnesium Sulfate) 2 gm in 50 mls @ 50 mls/hr IV UD PRN PRN Reason: Magnesium </= 1.6 Sodium Chloride (Sodium Chloride 0.9%) 1,000 mls @ 75 mls/hr IV .[id number] [facility] Last Admin: 03/18/21 06:47 Dose: 75 mls/hr Documented by: Latanoprost (Latanoprost Ophth Drops 2.5ml Bottle) 1 gtt OU QHS [facility] Last Admin: 03/17/21 21:31 Dose: Not Given Documented by: Levothyroxine Sodium ([facility]othy[facility]ine 50 Mcg Tablet) [facility] Last Admin: 03/18/21 06:47 Dose: 50 mcg Documented by: Metoclopramide HCl (Metoclopramide 10 Mg/2 Ml Vial) 10 mg IV Q6HP PRN PRN Reason: Nausea And Vomiting Morphine Sulfate (Morphine 4 Mg/Ml Vial) 0 mg IV Q3HP PRN PRN Reason: Pain Ondansetron HCl (Ondansetron 4 Mg/2 Ml Vial) 4 mg IV Q4HP PRN PRN Reason: Nausea And Vomiting Last Admin: 03/17/21 20:04 Dose: 4 mg Documented by: Pantoprazole Sodium (Pantoprazole 40 Mg Vial) 40 mg IV [facility] Last Admin: 03/18/21 06:47 Dose: 40 mg Documented by: Polyethylene Glycol (Polyethylene Glycol 3350 17 Gm Packet) 17 gm PO DAILYP PRN PRN Reason: Constipation Potassium Chloride (Potassium Chloride 20 Meq Tablet) 40 meq PO UD PRN PRN Reason: Potssium is 3-3.5 Potassium Chloride (Potassium Chloride 20 Meq Tablet) 40 meq PO UD PRN PRN Reason: Potassium < 3 Senna (Sennosides 1 Tablet) 2 tab PO DAILYP PRN PRN Reason: Constipation Sodium Chloride (0.9 % Sodium Chloride 10 Ml Syringe) 10 ml IV Q8 [facility] Last Admin: 03/18/21 05:53 Dose: Not Given Documented by: A/P Time Spent With Patient Time: Total time spent is greater than 50% in coordination of care (as documented) at patient's floor/unit and/or counseling patient:
[2021-03-18] MEDS: ENOXAPARIN 40 MG/0.4 ML SYRINGE SQ SCH (08:26)
[2021-03-18] MEDS: DOCUSATE SODIUM 100 MG CAPSULE PO SCH ×2 (09:40→20:24)
--- NOTE | 2021-03-18 10:18 | Discharge Summary ---
Discharge Provider Provider Patient information: Note initiated : 03/18/21 at 10:17 am Service Date, if different from initiated Date: [] Patient: Messi Hermosillo 81 y/o M admitted on 03/16/21 for right hip pain, fall 2 days ago. Chief Complaint: [] Date of admission: 03/16/21 19:13 Discharge date: 03/19/21 Primary care physician: Valente Salazar Consults: 03/16/21 Consult to Physician [CONS] Stat Comment: Consulting Provider: Lg Castro Reason For Exam: Physician to Consult 03/16/21 16:42 Consult to Physician [CONS] Stat Comment: Consulting Provider: Onesimo Bangura Reason For Exam: Physician to Consult Discharge Meds Discharge Medications Home Medications latanoprost 1 drp OPHTHALMIC (EYE) QHS 07/10/20 [History Confirmed 03/16/21 Last Taken Unknown] levothyroxine 50 mcg PO QDAY 07/10/20 [History Confirmed 03/16/21 Last Taken Unknown] potassium chloride [Klor-Con M20] 20 meq PO BID 07/10/20 [History Confirmed 03/16/21 Last Taken Unknown] torsemide 40 mg PO BID 07/10/20 [History Confirmed 03/16/21 Last Taken Unknown] ascorbic acid (vitamin C) 100 mg PO QDAY 03/16/21 [History Confirmed 03/16/21 Last Taken 03/16/21] cholecalciferol (vitamin D3) [Vitamin D3] 50 mcg PO QDAY 03/16/21 [History Confirmed 03/16/21 Last Taken 03/16/21] flaxseed oil See Rx Instructions .ROUTE .COMPLEX 03/16/21 [History Confirmed 03/16/21 Last Taken 03/12/21] guaifenesin [Mucinex] 600 mg PO BIDP PRN 03/16/21 [History Confirmed 03/16/21 Last Taken 12/16/20] magnesium oxide 400 mg PO QDAY 03/16/21 [History Confirmed 03/16/21 Last Taken Unknown] omega-3 fatty acids See Rx Instructions .ROUTE .COMPLEX 03/16/21 [History Confirmed 03/16/21 Last Taken 03/11/21] Eliquis 5 mg PO BID #10 tab 03/18/21 [Rx Last Taken Unknown] tramadol 50 - 100 mg PO Q6H PRN #60 tab 03/19/21 [Rx Last Taken Unknown] COURSE Hospital Course Hospital course: Interval history: History of present illness: Mr. Hermosillo is a 81 year old M Presents to the ED with right hip pain. Several days ago patient was getting up from the couch and was transitioning from the rug to the floor when he lost his balance falling with right hip with pain. Pain persisted his convinced to come to the ED. Were x-ray showed a right hip fracture. Dr. Castro was contacted orthopedic surgery. Patient does have a history of atrial fibrillation and does have Eliquis but has not been taking it. Was held temporarily for surgery when he had a left hip fracture last year patient never restarted it because he feels per his he bleeds easily. 03/17 No new complaints overnight events. Awaiting surgery. 03/18 Patient had a poor reaction to anesthesia and did require some flumazenil. Patient feeling good this morning sitting up eating breakfast. No new complaints. 03/19 Feeling well and ready to discharge. Willing to restart Eliquis. A/P Narrative: *Right hip fracture: s/p ORIF (03/17) *Atrial fibrillation w/PPM: Has not restarted his Eliquis since his last hip sx 2019 *Hypothyroidism: *Anemia, chronic: *?BLANKA on CKD III(unknown baseline): stable Discharge diagnosis: Right hip fracture Secondary discharge diagnosis: History of A. fib hypothyroidism chronic anemia chronic kidney disease Time Spent with Patient Time attestation: Total time spent providing and/or coordinating discharge services: Time spent: Greater than 30 minutes EXAM Constitutional Vitals: Temp Pulse Resp BP Pulse Ox 96.8 F L 87 20 90/58 93 03/18/21 07:49 03/18/21 07:49 03/18/21 07:49 03/18/21 07:49 03/18/21 07:49 Discharge Data Data Completed and Pending Labs on day of discharge: Labs from last 24 hours 03/18/21 03/18/21 05:34 05:34 Hgb 10.8 L Hct 34.1 L Sodium 138 Potassium 4.8 Chloride 103 Carbon Dioxide 25 Anion Gap 10.0 BUN 31 H Creatinine 1.4 H GFR Calculation 47 Glucose 118 H Uric Acid 7.8 Calcium 8.3 L Phosphorus 5.3 H Magnesium 2.8 H Total Bilirubin 0.3 Direct Bilirubin < 0.2 GGT 9 AST 24 ALT 13 Alkaline Phosphatase 63 Lactate Dehydrogenase 227 H Total Protein 6.4 Albumin 2.9 L Globulin 3.5 Albumin/Globulin Ratio 0.8 L Triglycerides 67 Discharge Plan Patient/Caregiver Discharge Instructions Activity: increase activity as tolerated Diet: Regular Diet Instructions: Tramadol (By mouth), Anterior Hip Replacement (DC) Activity Restrictions/Additional Instructions: Discharge Instructions: Do the exercises at home that physical therapy gave you. Weight bearing as tolerated. Wear comfortable clothing for physical therapy. Take your prescription, photo ID, insurance cards, and current medication list with you to your first physical therapy appointment. Take your prescription to pick and shovel man any medication or equipment (such as walker, crutches, toilet riser or C.P.M.) You have the silver dressing, leave in place for 7 days then remove. You may shower with dressing on, pat dry after shower. You may start showering on post op day #2, Monday. To avoid constipation while taking any narcotic pain medication, take an over the counter stool softener/laxative. Use your ice packs as directed, on for 20 minutes at a time, throughout the day. Ice and elevation will help with pain and swelling. If you have any questions or concerns call your orthopedic surgeon before going to the emergency room. [facility] has a automation qa lead physician 24 hours per day/7 days per week and can be reached at [phone]. Call for fevers above 100.5 or pain not controlled by medication. Your prescriptions are with your discharge information. Some medications were electronically transmitted to your pharmacy of choice. This discharge packet is provided to you to help keep you informed about your care. We want to ensure you get everything you need when you go home. You will also be receiving a call from us in a few days to follow up with you and see how you are doing since your discharge. This gives us a chance to listen to any concerns you maybe experiencing since you were discharged or any additional needs you may have, as well as providing us feedback on your care experience. We strive to always provide excellent care and thank you for your feedback and for choosing [facility]. Prescriptions: New tramadol 50 mg tablet 50 - 100 mg PO Q6H PRN (Reason: pain) Qty: 60 RF: 0 Continued latanoprost 0.005 % drops 1 drp OPHTHALMIC (EYE) QHS RF: 0 torsemide 20 mg tablet 40 mg PO BID RF: 0 potassium chloride [Klor-Con M20] 20 mEq tablet,ER particles/crystals 20 meq PO BID RF: 0 levothyroxine 50 mcg tablet 50 mcg PO QDAY RF: 0 guaifenesin [Mucinex] 600 mg tablet extended release 12hr 600 mg PO BIDP PRN (Reason: Sinus Symptoms) RF: 0 magnesium oxide 400 mg (241.3 mg magnesium) tablet 400 mg PO QDAY RF: 0 cholecalciferol (vitamin D3) [Vitamin D3] 50 mcg (2,000 unit) capsule 50 mcg PO QDAY RF: 0 omega-3 fatty acids Capsule See Rx Instructions .ROUTE .COMPLEX RF: 0 ascorbic acid (vitamin C) 100 mg Tablet 100 mg PO QDAY RF: 0 flaxseed oil 1,000 mg Capsule See Rx Instructions .ROUTE .COMPLEX RF: 0 Changed Eliquis 5 mg tablet 5 mg PO BID Qty: 10 RF: 0 Other Ambulatory Orders: Physical Therapy at Discharge - [facility] (2-3XW) Location: None Selected Ordered By: Cooper Max [facility] at Discharge - [facility] (2-3XW) Location: None Selected Ordered By: Cooper Max [facility] at Discharge - [facility] (2-3XW) Location: None Selected Ordered By: Cooper Max [facility] at Discharge - [facility] (2-3XW) Location: None Selected Ordered By: Cooper Max [facility] at Discharge - [facility] (2-3XW) Location: None Selected Ordered By: Cooper Max [facility] at Discharge - [facility] (2-3XW) Location: None Selected Ordered By: Cooper Max Follow Up Plan Follow up with: Valente Salazar MD [Primary Care Provider] - Lg Castro MD [Physician] - Patient Disposition: Home, Self-Care Prognosis: Good Overall status at discharge: patient is progressing back to baseline Discharge Orders: Discharge Order (Routine); Ordered 03/19/21 Ordered By: Onesimo SUH VTE Deep Vein Thrombosis/Pulmonary Embolism Present on Admission: No
--- NOTE | 2021-03-18 10:58 | Operative Note ---
DATE OF OPERATION: 03/17/2021 PREOPERATIVE DIAGNOSIS: Right displaced femoral neck fracture. POSTOPERATIVE DIAGNOSIS: Right displaced femoral neck fracture. PROCEDURE PERFORMED: Open treatment of a right femoral neck fracture with prosthetic hemiarthroplasty using a Jodi JT cemented stem with a +10 neck length and a 51 bipolar head. SURGEON: Lg Castro M.D. MOLD BUNCH TRIMMER: Tom Max PA-C. The PA's assistance was required for the safe and efficient completion of the entire case. This provider's expertise and technical skill were required throughout the case. The PA assisted with preoperative coordination, intraoperative retraction, wound closure, dressing and splint application, as well as postoperative documentation and care coordination. ANESTHESIA: General. DRAINS: None. SPECIMEN: Femoral head, which was discarded ESTIMATED BLOOD LOSS: 150 mL. COMPLICATIONS: None. POSTOPERATIVE CONDITION: Stable. INDICATIONS FOR SURGERY: This is a 81-year-old male who fell about 3 days ago, had pain in his right hip and difficulty bearing weight and did not seek medical treatment until yesterday, at which point he presented to the emergency department and x-rays were taken which showed a displaced femoral neck fracture. FINDINGS AT SURGERY: Displaced femoral neck fracture. Post-procedure showed reasonable stability with mild limb lengthening. PROCEDURE IN DETAIL: The patient had been seen preoperatively and informed consent had been obtained after discussion of risks and benefits of surgery. Risks including, but not limited to, bleeding, possibly requiring transfusion; infection, possibly requiring implant removal and prolonged IV antibiotics; injury to nerves, blood vessels, other surrounding structures; anesthetic risks; dislocation; leg length discrepancy; DVT and pulmonary embolus risks; and the possibility of needing further revision joint surgery. He understood and wished to proceed. Correct operative site was marked and the patient was taken to the operating room. General anesthesia was induced. He was carefully positioned into the left lateral decubitus position and pressure points were carefully padded. Right hip and lower extremity were then carefully prepped and draped in normal sterile fashion. A timeout was performed verifying patient name, operative site, and plan. Ioban was used to cover all skin surfaces. A standard posterior approach incision was made with scalpel through skin and subcutaneous tissue. He did have some edema within the subcutaneous fat, which was unusual. We did go ahead and dissect through the fat layer down onto the IT band and then we incised in line with our skin incision through the IT band. A Charmagey retractor was placed. IrriSept was irrigated. A bursectomy was performed as there was extensive bursitis. We then started sweeping fat off the short external rotators. There was an excessive amount of fat on the external rotators. I went ahead and released them off the back of the trochanter and opened the capsule along the intertrochanteric line. I then T'd this up to the acetabular rim. I used a saw to make a freshening neck cut, and once this was completed, a rongeur was used to remove bone fragments. This gave better access to the femoral head and a corkscrew was placed in it and this was removed. We placed this through sizer rings. It did not fit through a 51, but it did fit through a 52, so I went ahead and trialed the 51. This fit nicely, so we went ahead and removed this and then exposed the proximal femur. A box osteotome was used to gain canal entry and then handheld awl was used to identify the canal trajectory. A lateralizer reamer was used to lateralize and then we began sequentially broaching until we had fit that held our stem at our neck cut level. A standard offset neck trial was chosen. Then, we trialed the head ball. We started with a 0. This was extremely unstable and short. We went up to a 2.5, which was still unstable. We elected to go ahead and open our stem then, and we irrigated the femoral canal with IrriSept, after a minute pulse lavaged with saline. Cement restrictor was placed and then a canal brush was used to prepare the canal. We suctioned the canal dry with a foam sucker while cement was mixed. We then filled the canal with cement and then pressurized this and then the stem was positioned. We held the foot vertical and held the stem in approximately 15 degrees of anteversion, which matched his anatomy as well. Excess cement was removed. Once cement had fully hardened, I then trialed the 7.5 neck length. This did improve stability. However, I was still able to dislocate the leg with flexion to 90 degrees and internal rotation. Based off of his potential for dislocation, I felt a +10 would be better, so we went ahead and opened a 51 bipolar head with the +10 smaller head ball. The stem was carefully cleaned and dried and the head ball construct was impacted. We then reduced the hip. I did check leg lengths and also check tension with flexion of the knee. It did not spring back excessively. It did feel slightly longer than the other leg. However, it was stable with flexion and internal rotation, so we went ahead and placed him on a padded nail in some abduction. We irrigated with IrriSept, after a minute pulse lavaged with saline. I repaired the posterior capsule with 2 [id number] #5 FiberWire stitches and then another irrigation was done. We used a #1 Vicryl to close the IT band in two running stitches. Final IrriSept irrigation was done, after a minute final pulse lavage, and then 2-0 Monocryl was used for subcutaneous and zora for skin. Xeroform and a sterile dressing were applied. Abductor wedge was placed and the patient was then turned supine, extubated, and transferred to the [facility] and then to recovery room in stable condition. BJB:ave Job ID: [id number] Doc ID: [id number] Lg Castro MD
[2021-03-18] MEDS: LATANOPROST OPHTH DROPS 2.5ML BOTTLE OU SCH (20:53)
[2021-03-19] MEDS: 0.9 % SODIUM CHLORIDE 10 ML SYRINGE IV SCH ×2 (03:57→05:53)
[2021-03-19] MEDS: PANTOPRAZOLE 40 MG VIAL IV SCH (07:04)
[2021-03-19] MEDS: LEVOTHYROXINE 50 MCG TABLET PO SCH (07:04)
[2021-03-19] MEDS ORDERED: traMADol 50 MG TABLET PO ONE (07:58)
--- NOTE | 2021-03-19 07:59 | Orthopedic Progress Note ---
SUBJECTIVE Subjective Patient information: Note initiated : 03/19/21 at 7:57 am Service Date, if different from initiated Date: [] Patient: Messi Hermosillo 81 y/o M admitted on 03/16/21 for right hip pain, fall 2 days ago. Chief Complaint: mild to moderate pain with ambulation, ok while at rest. Constitutional Vitals: Vital Signs Temp Pulse Resp BP Pulse Ox 98.1 F 60 16 107/66 94 03/19/21 07:00 03/19/21 07:00 03/19/21 07:00 03/19/21 07:00 03/19/21 07:00 Period Temp Pulse Resp BP Sys/Thomas Pulse Ox Last 24 Hr 96.3 F-98.7 F 60-95 16-20 102-116/60-67 90-96 Intake and Output 03/18/21 03/19/21 03/19/21 21:59 05:59 13:59 Intake Total 2321 800 Output Total 700 200 Balance 2321 100 -200 Intake & Output: Intake & Output 03/18/21 03/19/21 03/19/21 21:59 05:59 13:59 Intake Total 2321 800 Output Total 700 200 Balance 2321 100 -200 Intake: IV 541 Sodium Chloride 0.9% 1,000 ml @ 541 75 mls/hr IV .[id number] [facility] Rx#: [id number] Oral 1280 800 GI Tube Flush 500 Output: Void Amount 700 200 Other: Urine Appearance Clear Clear Urine Color Pale Bright Yellow Urine Odor Normal Normal OBJ DATA Labs CBC & Chem 7: 03/18/21 05:34 03/18/21 05:34 Labs: Abnormal Lab Results 03/18/21 03/18/21 03/17/21 05:34 05:34 05:16 RBC Hgb 10.8 L Hct 34.1 L POC Hct RDW MPV [place] % (Auto) Lymph # (Auto) PT 15.3 H INR 1.2 H Chloride POC BUN BUN 31 H Creatinine 1.4 H POC Creatinine Glucose 118 H Calcium 8.3 L POC WB Ioniz Calcium Phosphorus 5.3 H Magnesium 2.8 H GGT Lactate Dehydrogenase 227 H Albumin 2.9 L Globulin Albumin/Globulin Ratio 0.8 L 03/17/21 03/17/21 03/16/21 05:16 05:15 17:51 RBC 3.61 L Hgb 11.0 L Hct 33.5 L POC Hct 37 L RDW 15.3 H MPV [place] % (Auto) 12.7 H Lymph # (Auto) 1.46 L PT INR Chloride POC BUN 36 H BUN 33 H Creatinine 1.5 H POC Creatinine 1.9 H Glucose Calcium 7.9 L POC WB Ioniz Calcium 1.12 L Phosphorus Magnesium GGT 7 L Lactate Dehydrogenase Albumin 2.8 L Globulin Albumin/Globulin Ratio 0.8 L 03/16/21 03/16/21 17:15 17:15 RBC 3.86 L Hgb 11.9 L Hct 36.0 L POC Hct RDW 15.5 H MPV 10.8 H [place] % (Auto) Lymph # (Auto) 1.32 L PT INR Chloride 95 L POC BUN BUN 34 H Creatinine 1.8 H POC Creatinine Glucose Calcium 8.5 L POC WB Ioniz Calcium Phosphorus Magnesium GGT Lactate Dehydrogenase 259 H Albumin 3.1 L Globulin 3.9 H Albumin/Globulin Ratio 0.8 L bandages c/d/i nvi-distal Meds: Medications Acetaminophen (Acetaminophen 325 Mg Tablet) 650 mg PO Q6HP PRN PRN Reason: PAIN/FEVER > 101 Last Admin: 03/18/21 23:48 Dose: 650 mg Documented by: Hydrocodone Bitart/Acetaminophen (Hydrocodone/Apap 5/325mg Tablet) 1 tab PO Q4HP PRN PRN Reason: PAIN LEVEL 3-6 Albuterol/Ipratropium (Ipratropium/Albuterol 3 Ml Ampul.Neb) 3 ml NEB Q4HP PRN PRN Reason: Shortness Of Breath Docusate Sodium (Docusate Sodium 100 Mg Capsule) 100 mg PO BID [facility] Last Admin: 03/18/21 20:24 Dose: Not Given Documented by: Enoxaparin Sodium (Enoxaparin 40 Mg/0.4 Ml Syringe) 40 mg SQ DAILY [facility] Last Admin: 03/18/21 08:26 Dose: 40 mg Documented by: Potassium Chloride 40 meq/ (Dextrose) 520 mls @ 130 mls/hr IV UD PRN PRN Reason: Potassium < 3 Magnesium Sulfate (Magnesium Sulfate) 2 gm in 50 mls @ 50 mls/hr IV UD PRN PRN Reason: Magnesium </= 1.6 Latanoprost (Latanoprost Ophth Drops 2.5ml Bottle) 1 gtt OU QHS [facility] Last Admin: 03/18/21 20:53 Dose: Not Given Documented by: Levothyroxine Sodium (Levothyroxine 50 Mcg Tablet) 50 mcg PO [facility] Last Admin: 03/19/21 07:04 Dose: 50 mcg Documented by: Metoclopramide HCl (Metoclopramide 10 Mg/2 Ml Vial) 10 mg IV Q6HP PRN PRN Reason: Nausea And Vomiting Morphine Sulfate (Morphine 4 Mg/Ml Vial) 0 mg IV Q3HP PRN PRN Reason: Pain Ondansetron HCl (Ondansetron 4 Mg/2 Ml Vial) 4 mg IV Q4HP PRN PRN Reason: Nausea And Vomiting Last Admin: 03/17/21 20:04 Dose: 4 mg Documented by: Pantoprazole Sodium (Pantoprazole 40 Mg Vial) 40 mg IV [facility] Last Admin: 03/19/21 07:04 Dose: 40 mg Documented by: Polyethylene Glycol (Polyethylene Glycol 3350 17 Gm Packet) 17 gm PO DAILYP PRN PRN Reason: Constipation Potassium Chloride (Potassium Chloride 20 Meq Tablet) 40 meq PO UD PRN PRN Reason: Potssium is 3-3.5 Potassium Chloride (Potassium Chloride 20 Meq Tablet) 40 meq PO UD PRN PRN Reason: Potassium < 3 Senna (Sennosides 1 Tablet) 2 tab PO DAILYP PRN PRN Reason: Constipation Sodium Chloride (0.9 % Sodium Chloride 10 Ml Syringe) 10 ml IV Q8 [facility] Last Admin: 03/19/21 05:53 Dose: Not Given Documented by: A/P Assessment and plan (1) Closed displaced fracture of right femoral neck: Status: Acute Comment: mobilize with PT Discharge when cleared by hospitalist. f/u 2 weeks at [place] for staple removal and x-rays. One time dose of Tramadol in hospital to see if the pt tolerates well and helps with walking. out-pt rx if pt tolerates it well. Time Spent With Patient Time: Total time spent is greater than 50% in coordination of care (as documented) at patient's floor/unit and/or counseling patient:
[2021-03-19] MEDS: ENOXAPARIN 40 MG/0.4 ML SYRINGE SQ SCH (08:19)
[2021-03-19] MEDS: DOCUSATE SODIUM 100 MG CAPSULE PO SCH (08:51)
== END 2021-03-19 10:35 | disposition home or self-care (01) | DRG 522 ==
LOC: ED 14:10 → MEDSUR 19:13
PROVIDERS: ADMIT Internal Medicine; ATTEND Internal Medicine

== ENCOUNTER 2023-06-14 09:15 | Inpatient (IN) ==
[2023-06-14 10:48] LABS: Basophils # (Auto) 0.04 K/mcL (0.00-0.30); Basophils % (Auto) 0.5 % (0.0-2.0); Eosinophils # (Auto) 0.16 K/mcL (0.00-0.70); Eosinophils % (Auto) 1.9 % (0.0-7.0); Hematocrit 35.2 % (40.1-51.0); Hemoglobin 10.7 g/dL (13.7-17.5); Lymphocytes # (Auto) 1.07 K/mcL (1.50-4.80); Lymphocytes % (Auto) 12.9 % (15.5-49.0); Mean Cell Volume 113.9 fL (80.0-100.0); Mean Corpuscular HGB Conc 30.4 g/dL (31.0-36.0); Mean Platelet Volume 10.7 fL (8.8-12.5); Monocytes % (Auto) 10.9 % (1.0-12.0); Neutrophils % (Auto) 72.6 % (38.0-78.0); Platelet Count 297 K/mcL (140-440); RBC 3.09 M/mcL (4.63-6.08); Red Cell Distribution Width 15.4 % (11.5-14.5); WBC 8.3 K/mcL (4.5-11.0)
[2023-06-14 11:19] LABS: Thyroid Stimulating Hormone 5.94 uIU/mL (0.27-5.01)
[2023-06-14 11:28] LABS: ALT/SGPT 30 U/L (<40); AST/SGOT 20 U/L (<40); Albumin 3.1 gm/dL (3.2-5.2); Albumin/Globulin Ratio 0.9 (1.0-2.3); Alkaline Phosphatase 105 U/L (39-117); Bilirubin,Total 0.3 mg/dL (0.1-1.0); Blood Urea Nitrogen 76 mg/dL (8-23); Calcium 8.6 mg/dL (8.6-10.4); Carbon Dioxide 23 mmol/L (22-30); Chloride 103 mmol/L (96-108); Globulin 3.3 gm/dL (2.2-3.7); Glomerular Filtration Rate 24; Glucose 90 mg/dL (70-105)
[2023-06-14 11:42] LABS: POC Calcium, Ionized 1.16 (1.16-1.32); POC Creatinine 2.7 (0.6-1.2); POC Potassium 6.3 (3.3-5.1)
[2023-06-14] MEDS ORDERED: FUROSEMIDE 40 MG/4 ML VIAL IV ONE ×2 (11:42→19:00)
[2023-06-14] MEDS ORDERED: DEXTROSE 50% 50 ML VIAL IV ONE (11:42)
[2023-06-14] MEDS ORDERED: CALCIUM CHLORIDE 1,000 MG/10 ML SYRINGE IV ONE (11:42)
[2023-06-14] MEDS ORDERED: INSULIN REGULAR, HUMAN 1 UNIT/0.01 ML UNIT IV ONE (11:42)
[2023-06-14] MEDS ORDERED: DEXTROSE 50% 50 ML SYRINGE IV ONE (12:00)
[2023-06-14 12:03] LABS: Appearance,Urine HAZY (Clear); Bilirubin,Urine Negative (Negative); Color,Urine YELLOW; Culture Indicated,Urine No; Glucose,Urine (UA) Negative (Negative); Ketones,Urine Negative (Negative); Leukocyte Esterase,Urine Negative /uL (Negative); Nitrate,Urine Negative (Negative); Protein,Urine Negative (Negative); Specific Gravity,Urine 1.012 (1.000-1.035); Urine Blood Negative (Negative); Urobilinogen,Urine Negative
[2023-06-14] MEDS ORDERED: CALCIUM GLUCONATE 7 MEQ in DEXTROSE 5% IN WATER 50 ML IV ONE (12:05)
[2023-06-14] MEDS ORDERED: POTASSIUM CHLORIDE 20 MEQ in DEXTROSE 5% IN WATER 250 ML IV ONE (12:52)
[2023-06-14] MEDS ORDERED: SODIUM POLYSTYRENE SULFONATE 15 GM/60 ML SUSPENSION PO ONE (14:10)
[2023-06-14] MEDS ORDERED: ONDANSETRON 4 MG/2 ML VIAL IV PRN (15:17)
[2023-06-14] MEDS ORDERED: ACETAMINOPHEN 325 MG TABLET PO PRN (15:17)
[2023-06-14] MEDS ORDERED: SENNOSIDES 1 TABLET PO PRN (15:17)
[2023-06-14] MEDS ORDERED: LACTULOSE 20 GM/30 ML ORAL.SOL PO PRN (15:17)
[2023-06-14 16:33] LABS: Creatinine, Spot Urine 70.3 mg/dL (39.0-259.0); Pro:Crea Ratio 0.2 (<0.20)
[2023-06-14] MEDS: 0.9 % SODIUM CHLORIDE 10 ML SYRINGE IV SCH ×2 (19:36→23:52)
[2023-06-14] MEDS: DOCUSATE SODIUM 100 MG CAPSULE PO SCH (19:38)
[2023-06-14] MEDS ORDERED: SODIUM POLYSTYRENE SULFONATE 15 GM/60 ML SUSPENSION PO SCH (21:00)
[2023-06-15 07:28] LABS: Basophils # (Auto) 0.04 K/mcL (0.00-0.30); Basophils % (Auto) 0.4 % (0.0-2.0); Eosinophils # (Auto) 0.13 K/mcL (0.00-0.70); Eosinophils % (Auto) 1.3 % (0.0-7.0); Hemoglobin 10.1 g/dL (13.7-17.5); Lymphocytes # (Auto) 0.75 K/mcL (1.50-4.80); Lymphocytes % (Auto) 7.3 % (15.5-49.0); Mean Cell Volume 119.5 fL (80.0-100.0); Mean Corpuscular HGB Conc 28.9 g/dL (31.0-36.0); Mean Platelet Volume 10.3 fL (8.8-12.5); Monocytes # (Auto) 0.91 K/mcL (0.10-0.90); Monocytes % (Auto) 8.9 % (1.0-12.0); Platelet Count 282 K/mcL (140-440); RBC 2.93 M/mcL (4.63-6.08); Red Cell Distribution Width 15.1 % (11.5-14.5); WBC 10.2 K/mcL (4.5-11.0)
[2023-06-15 08:02] LABS: ALT/SGPT 25 U/L (<40); AST/SGOT 20 U/L (<40); Albumin 2.4 gm/dL (3.2-5.2); Albumin/Globulin Ratio 0.7 (1.0-2.3); Alkaline Phosphatase 102 U/L (39-117); Bilirubin,Direct < 0.2 mg/dL (0-0.3); Bilirubin,Total 0.4 mg/dL (0.1-1.0); Blood Urea Nitrogen 77 mg/dL (8-23); Calcium 8.2 mg/dL (8.6-10.4); Carbon Dioxide 21 mmol/L (22-30); Chloride 102 mmol/L (96-108); Globulin 3.5 gm/dL (2.2-3.7); Glomerular Filtration Rate 24; Glucose 88 mg/dL (70-105); Lactate Dehydrogenase 272 U/L (135-225); Phosphorous 5.7 mg/dL (2.5-4.5); Triglycerides 54 mg/dL (<150); Uric Acid 8.1 mg/dL (2.5-8.0)
[2023-06-15] MEDS: FUROSEMIDE 40 MG/4 ML VIAL IV SCH ×2 (08:21→16:49)
[2023-06-15] MEDS: 0.9 % SODIUM CHLORIDE 10 ML SYRINGE IV SCH ×3 (08:22→20:50)
[2023-06-15] MEDS ORDERED: guaiFENesin 600 MG TAB.SR.12H PO PRN (10:09)
[2023-06-15] MEDS ORDERED: GABAPENTIN 100 MG CAPSULE PO PRN (10:09)
[2023-06-15] MEDS ORDERED: DICYCLOMINE 20 MG TABLET PO PRN (10:24)
[2023-06-15] MEDS: DOCUSATE SODIUM 100 MG CAPSULE PO SCH ×2 (11:07→20:49)
[2023-06-15 16:00] LABS: Hematocrit 29.2 % (40.1-51.0); Hemoglobin 9.2 g/dL (13.7-17.5)
[2023-06-15] MEDS: LATANOPROST OPHTH DROPS 2.5ML BOTTLE OU SCH (20:49)
[2023-06-15] MEDS: DORZOLAMIDE 2% OPHTH DROPS 10ML BOTTLE OU SCH (20:50)
[2023-06-15] MEDS: BRIMONIDINE OPHTH DROPS 1 GTT BOTTLE 5ML OU SCH (20:50)
[2023-06-16] MEDS ORDERED: NOREPINEPHRINE BITARTRATE 4 MG/4 ML VIAL IV ONE ×2 (00:23→19:49)
[2023-06-16] MEDS: NOREPINEPHRINE BITARTRATE 8 MG in 0.9 % SODIUM CHLORIDE 242 ML IV SCH ×2 (00:31→17:13)
[2023-06-16] MEDS: 0.9 % SODIUM CHLORIDE 250 ML IV SCH ×4 (00:32→17:12)
[2023-06-16 01:06] LABS: Hematocrit 25.3 % (40.1-51.0); Hemoglobin 7.7 g/dL (13.7-17.5)
[2023-06-16] MEDS ORDERED: 0.9 % SODIUM CHLORIDE 250 ML IV SCH ×3 (01:15→20:30)
[2023-06-16] MEDS: 0.9 % SODIUM CHLORIDE 10 ML SYRINGE IV SCH ×3 (05:53→21:39)
[2023-06-16 06:23] LABS: Basophils # (Auto) 0.01 K/mcL (0.00-0.30); Basophils % (Auto) 0.1 % (0.0-2.0); Eosinophils # (Auto) 0 K/mcL (0.00-0.70); Eosinophils % (Auto) 0 % (0.0-7.0); Hematocrit 24.8 % (40.1-51.0); Hemoglobin 7.9 g/dL (13.7-17.5); Lymphocytes # (Auto) 0.76 K/mcL (1.50-4.80); Lymphocytes % (Auto) 6.3 % (15.5-49.0); Mean Cell Volume 108.3 fL (80.0-100.0); Mean Corpuscular HGB Conc 31.9 g/dL (31.0-36.0); Monocytes # (Auto) 0.85 K/mcL (0.10-0.90); Neutrophils % (Auto) 85.7 % (38.0-78.0); Platelet Count 260 K/mcL (140-440); RBC 2.29 M/mcL (4.63-6.08); Red Cell Distribution Width 16.5 % (11.5-14.5); WBC 12.1 K/mcL (4.5-11.0)
[2023-06-16] MEDS ORDERED: LEVOTHYROXINE 50 MCG TABLET PO SCH (07:30)
[2023-06-16 07:57] LABS: ALT/SGPT 19 U/L (<40); AST/SGOT 12 U/L (<40); Albumin 2.5 gm/dL (3.2-5.2); Albumin/Globulin Ratio 0.8 (1.0-2.3); Alkaline Phosphatase 95 U/L (39-117); Bilirubin,Direct 0.2 mg/dL (<0.3); Bilirubin,Total 0.7 mg/dL (0.1-1.0); Blood Urea Nitrogen 85 mg/dL (8-23); Calcium 8.1 mg/dL (8.6-10.4); Carbon Dioxide 22 mmol/L (22-30); Chloride 99 mmol/L (96-108); Globulin 3.3 gm/dL (2.2-3.7); Glomerular Filtration Rate 21; Glucose 122 mg/dL (70-105); Lactate Dehydrogenase 237 U/L (135-225); Phosphorous 5.6 mg/dL (2.5-4.5); Triglycerides 92 mg/dL (<150); Uric Acid 8.4 mg/dL (2.5-8.0)
[2023-06-16] MEDS ORDERED: FERROUS SULFATE 325 MG TABLET PO SCH (08:00)
[2023-06-16] MEDS ORDERED: MAGNESIUM OXIDE 400 MG TABLET PO SCH (09:00)
[2023-06-16] MEDS ORDERED: ASCORBIC ACID 500 MG TABLET PO SCH (09:00)
[2023-06-16] MEDS: DORZOLAMIDE 2% OPHTH DROPS 10ML BOTTLE OU SCH ×2 (10:06→19:47)
[2023-06-16] MEDS: BRIMONIDINE OPHTH DROPS 1 GTT BOTTLE 5ML OU SCH ×2 (10:06→19:46)
[2023-06-16] MEDS: DOCUSATE SODIUM 100 MG CAPSULE PO SCH ×2 (10:06→19:46)
[2023-06-16] MEDS ORDERED: ceFAZolin 2 GM in DEXTROSE 5% IN WATER 50 ML IV SCH (13:58)
[2023-06-16 14:18] LABS: Albumin 2.4 gm/dL (3.2-5.2); Calcium 7.7 mg/dL (8.6-10.4); Phosphorous 5.7 mg/dL (2.5-4.5)
[2023-06-16] MEDS ORDERED: ETOMIDATE 20 MG/10 ML VIAL IV ONE (14:50)
[2023-06-16] MEDS ORDERED: ROCURONIUM 10 MG/ML ML IV ONE ×2 (14:50→15:20)
[2023-06-16] MEDS ORDERED: IOVERSOL 20 ML VIAL IV ONE (15:10)
[2023-06-16] MEDS ORDERED: SUGAMMADEX SODIUM 200 MG/2 ML VIAL IV ONE (15:20)
[2023-06-16 15:38] LABS: Hematocrit 25.5 % (40.1-51.0); Hemoglobin 8.3 g/dL (13.7-17.5)
[2023-06-16] MEDS ORDERED: LIDOCAINE 2% URO-JET 10 ML JEL.PF.APP UR ONE (15:53)
[2023-06-16] MEDS ORDERED: CEFEPIME 2 GM VIAL IV SCH (17:00)
[2023-06-16] MEDS ORDERED: HALOPERIDOL LACTATE 5 MG/ML VIAL IV PRN ×2 (17:00→17:30)
[2023-06-16 17:43] LABS: Hematocrit 26.1 % (40.1-51.0); Hemoglobin 8.6 g/dL (13.7-17.5)
[2023-06-16] MEDS ORDERED: HALOPERIDOL LACTATE 5 MG/ML VIAL ONE (17:57)
[2023-06-16 18:03] LABS: Albumin 2.4 gm/dL (3.2-5.2); Calcium 7.7 mg/dL (8.6-10.4)
[2023-06-16] MEDS: LATANOPROST OPHTH DROPS 2.5ML BOTTLE OU SCH (19:47)
[2023-06-16] MEDS ORDERED: 0.9 % SODIUM CHLORIDE 1,000 ML IV ONE (20:28)
[2023-06-16] MEDS ORDERED: VASOPRESSIN 20 UNIT in DEXTROSE 5% IN WATER 99 ML IV SCH (20:30)
[2023-06-16] MEDS ORDERED: VASOPRESSIN 20 UNIT/ML VIAL ONE (20:32)
[2023-06-16 21:42] LABS: Hematocrit 26.2 % (40.1-51.0)
[2023-06-16] MEDS ORDERED: LORazepam 2 MG/ML VIAL IV PRN (21:44)
[2023-06-16] MEDS ORDERED: morphine 2 MG/ML VIAL IV PRN (21:44)
== END 2023-06-17 00:15 | disposition expired ==
LOC: ED 09:15 → ICU 15:05
PROVIDERS: ADMIT Internal Medicine; ATTEND Internal Medicine